=== PATIENT | male | born 1935 | race Caucasian/White ===

== ENCOUNTER → 2017-01-11 | Outpatient (CLI) | payer MEDICARE ==
[2017-01-11 15:02] LABS: Blood Urea Nitrogen 15 mg/dL (9-20); Non-African American GFR(MDRD) >60 (>60 ml/min/1.73 sqM)
--- NOTE | 2017-01-11 16:14 | CT ---
EXAMINATION TYPE: CT soft tissue neck w con DATE OF EXAM: 01/11/2017 COMPARISON: NONE HISTORY: 81-year-old male localized soft tissue swelling. TECHNIQUE: Contiguous axial scanning of the neck performed with IV Contrast, patient injected with 10 0 mL of Omnipaque 300. Coronal/sagittal reconstructions performed. CT DLP: 293.5 mGycm Automated exposure control for dose reduction was used. FINDINGS: Large area of encephalomalacia within the right middle cranial fossa suggests area of old infarct. Vi sualized paranasal sinuses and mastoid air cells are clear. The nasopharynx is clear. Suspect some redundancy of the left posterior oropharyngeal mucosa, axial image 55 as no discrete abnormal enhancement is seen in this region. Oropharynx otherwise clear. The epiglottis and prevertebral soft tissues are within normal limits. The glottic and subglottic structures, tracheal column, and visualized upper lungs appear clear. The thyroid gland appears satisfactory. The submandibular and parotid glands are somewhat atrophic. No cervical lymphadenopathy seen. Patient is edentulous. Degenerative changes at the left TMJ. Degenerative changes at the left sternoclavicular joint. Atherosclerotic calcifications at the left g reater than right carotid bifurcations and degenerative disc disease throughout the cervical spine. IMPRESSION: 1. SOME MUCOSAL SPACE NODULARITY ALONG THE UPPER LEFT POSTERIOR OROPHARYNX SUSPECTED TO REPRESENT RED UNDANT MUCOSA THERE IS NO ABNORMAL ENHANCEMENT HERE. DIRECT VISUALIZATION IF INDICATED. NO SUSPICI OUS NECK MASS OR LYMPHADENOPATHY OTHERWISE SEEN. 2. 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
== END | disposition home or self-care (01) ==
LOC: RADCTMAIN 14:20
PROVIDERS: ATTEND Family Medicine
DX: R22.1 Localized swelling, mass and lump, neck (principal)
CPT/HCPCS: 82565; 84520; 70491; 36415; Q9967

== ENCOUNTER 2017-03-09 15:56 | Inpatient (IN) | payer MEDICARE ==
[2017-03-09 17:35] VITALS: BMI 27.8
[2017-03-09 19:02] LABS: Basophils % (A) 0 %; CH 29.4; CHCM 32.9; Eosinophils # (A) 0.4 k/uL (0-0.7); Eosinophils % (A) 5 %; HCT 36.1 % (39.0-53.0); HDW 3.02; HGB 11.3 gm/dL (13.0-17.5); Luc # (Auto) 0.09; Luc % (Auto) 1; Lymphocytes # (A) 0.7 k/uL (1.0-4.8); Lymphocytes % (A) 9 %; MCH 28.2 pg (25.0-35.0); MCHC 31.4 g/dL (31.0-37.0); MCV 89.8 fL (80.0-100.0); Mean Platelet Volume 9.1; Monocytes # (A) 0.5 k/uL (0-1.0); Monocytes % (A) 6 %; Neutrophils % (A) 79 %; RBC 4.02 m/uL (4.30-5.90); WBC 7.6 k/uL (3.8-10.6); WBC (Perox) 8.41
[2017-03-09 19:11] LABS: Anion Gap 10 mmol/L; Blood Urea Nitrogen 19 mg/dL (9-20); Calcium 8.6 mg/dL (8.4-10.2); Carbon Dioxide 26 mmol/L (22-30); Chloride 103 mmol/L (98-107); Glucose 111 mg/dL (74-99); Non-African American GFR(MDRD) >60 (>60 ml/min/1.73 sqM); Potassium 3.8 mmol/L (3.5-5.1); Sodium 139 mmol/L (137-145)
[2017-03-09 19:16] LABS: INR 1.1 (<1.2); Prothrombin Time 11.4 sec (9.0-12.0)
[2017-03-09] MEDS ORDERED: ATORVASTATIN 10 MG TAB PO SCH (21:00)
[2017-03-09] MEDS ORDERED: ZOLPIDEM 10 MG TAB PO SCH (21:00)
[2017-03-09] MEDS ORDERED: METOPROLOL SUCCINATE (ER) 25 MG TAB.ER.24H PO SCH (21:00)
[2017-03-09] MEDS: CYCLOBENZAPRINE 5 MG TAB PO SCH (21:02)
[2017-03-09] MEDS: SODIUM CHLORIDE 0.9% 1,000 ML IV SCH (21:02)
[2017-03-09] MEDS: HEPARIN SODIUM,PORCINE 5,000 UNIT/ML 1 ML VIAL SQ SCH (21:02)
[2017-03-10 00:56] LABS: Appearance,Urine Clear (Clear); Bilirubin,Urine Negative (Negative); Glucose,Urine (UA) Negative (Negative); Ketones,Urine 1+ (Negative); Leukocyte Esterase,Urine Negative (Negative); Nitrite,Urine Negative (Negative); Protein,Urine Negative (Negative); Specific Gravity,Urine 1.007 (1.001-1.035); UA Billing (MACRO vs. MICRO) CHEM; Urobilinogen,Urine <2.0 mg/dL (<2.0)
[2017-03-10] MEDS ORDERED: PANTOPRAZOLE 40 MG TABLET PO SCH (07:30)
[2017-03-10] MEDS: HEPARIN SODIUM,PORCINE 5,000 UNIT/ML 1 ML VIAL SQ SCH (07:47)
[2017-03-10] MEDS: CYCLOBENZAPRINE 5 MG TAB PO SCH (07:47)
[2017-03-10] MEDS ORDERED: LORATADINE 10 MG TAB PO SCH (09:00)
[2017-03-10] MEDS ORDERED: MELOXICAM 7.5 MG TAB PO SCH (09:00)
[2017-03-10] MEDS ORDERED: amLODIPine 5 MG TAB PO SCH (09:00)
[2017-03-10] MEDS ORDERED: LISINOPRIL 10 MG TAB PO SCH (09:00)
[2017-03-10] MEDS ORDERED: ASPIRIN 325 MG TAB PO SCH (09:00)
[2017-03-10] MEDS ORDERED: traMADol 50 MG TAB PO SCH (09:00)
[2017-03-10] MEDS ORDERED: FUROSEMIDE 20 MG TAB PO SCH (09:00)
[2017-03-10] MEDS ORDERED: TAMSULOSIN 0.4 MG CAP.ER.24H PO SCH (09:00)
[2017-03-10] MEDS ORDERED: FLUDROCORTISONE 0.1 MG TAB PO SCH (09:00)
[2017-03-10] MEDS ORDERED: MAGNESIUM OXIDE 400 MG TAB PO SCH (09:00)
[2017-03-10] MEDS ORDERED: FINASTERIDE 5 MG TAB PO SCH (09:00)
[2017-03-10] MEDS ORDERED: MULTIVITAMINS, THERA 1 EACH TAB PO SCH (12:00)
--- NOTE | 2017-03-10 13:51 | P.CNOR ---
History of Present Illness - HPI Consult date: 03/10/17 History of present illness: This is an 81 year old male who is admitted as an inpatient after a fall. Patient states he fell 6 days ago in an assisted living center. Patient states he did not have significant pain in the arm even with passive range of motion. 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 Patient states over the next few days he noticed increased pain and bruising of the left arm. Patient's primary care physician took x-rays of the left arm and found a fracture of the left humerus. Patient denies any decreased sensation or tingling in the left arm. Patient states as long as the arm is still, his pain is under control. Patient denies any neck pain, right upper extremity pain, bilateral lower extremity pain or back pain. Review of Systems See HPI. Past Medical History Past Medical History: Atrial Flutter, Heart Failure, CVA/TIA, Hyperlipidemia, Hypertension, Prostate Disorder Additional Past Medical History / Comment(s): neurocardiogenic syncope, psoriasis, arthritis, insomnia, holcom disease. History of Any Multi-Drug Resistant Organisms: None Reported Past Surgical History: Appendectomy, Hernia Repair, Tonsillectomy Additional Past Surgical History / Comment(s): multiple hernia repairs with sling, two broken hips surgically corrected, Additional Past Anesthesia/Blood Transfusion Reaction / Comm: Never had transfusion. Smoking Status: Former smoker Past Alcohol Use History: None Reported Past Drug Use History: None Reported - Past Family History Mother History Unknown: Yes Father History Unknown: Yes Medications and Allergies Home Medications Medication Instructions Recorded Confirmed Type Aspirin 325 mg PO DAILY 03/09/17 03/09/17 History Cyclobenzaprine [Flexeril] 5 mg PO BID 03/09/17 03/09/17 History Enalapril Maleate [Vasotec] 5 mg PO DAILY 03/09/17 03/09/17 History Finasteride [Proscar] 5 mg PO DAILY 03/09/17 03/09/17 History Fludrocortisone [Florinef] 0.1 mg PO DAILY 03/09/17 03/09/17 History Furosemide [Lasix] 20 mg PO DAILY 03/09/17 03/09/17 History Loratadine 10 mg PO DAILY 03/09/17 03/09/17 History Magnesium Gluconate [Magonate] 500 mg PO DAILY 03/09/17 03/09/17 History Meloxicam 15 mg PO DAILY 03/09/17 03/09/17 History Metoprolol Succinate [Toprol XL] 25 mg PO HS 03/09/17 03/09/17 History Multivitamin [Men's Multi-Vitamin] 1 tab PO DAILY 03/09/17 03/09/17 History Omeprazole 20 mg PO DAILY 03/09/17 03/09/17 History Simvastatin [Zocor] 20 mg PO HS 03/09/17 03/09/17 History Tamsulosin [Flomax] 0.4 mg PO DAILY 03/09/17 03/09/17 History Zolpidem Tartrate 10 mg PO HS 03/09/17 03/09/17 History amLODIPine BESYLATE [Norvasc] 5 mg PO DAILY 03/09/17 03/09/17 History traMADol HCL [Ultram] 50 mg PO DAILY 03/09/17 03/09/17 History Allergies Allergy/AdvReac Type Severity Reaction Status Date / Time No Known Allergies Allergy Verified 03/09/17 18:22 Physical Examination On exam there is diffuse ecchymosis to the left upper extremity along with swelling to the upper arm. Patient is not able to perform active range of motion due to hemiplegia. There is significant pain with passive range of motion at the elbow and shoulder. Passive range of motion is limited due to pain and swelling. Patient is unable to extend the fingers of the left hand due to hemiplegia but sensation is intact. Radial pulse is 2+. Neurovascular status to the right upper extremity is intact. Results X-rays are reviewed showing proximal humerus fracture of the left upper extremity. - Labs Labs: Abnormal Lab Results - Last 24 Hours (Table) 03/09/17 03/09/17 03/10/17 Range/Units 18:57 18:57 00:23 RBC 4.02 L (4.30-5.90) m/uL Hgb 11.3 L (13.0-17.5) gm/dL Hct 36.1 L (39.0-53.0) % Lymphocytes # 0.7 L (1.0-4.8) k/uL Glucose 111 H (74-99) mg/dL Urine Ketones 1+ H (Negative) Microbiology - Last 24 Hours (Table) 08/23/17 00:23 Urine Culture - Preliminary Urine,Voided H & H 03/09/17 Range/Units 18:57 Hgb 11.3 L (13.0-17.5) gm/dL Hct 36.1 L (39.0-53.0) % Coagulation 03/09/17 Range/Units 18:57 INR 1.1 (<1.2) Result Diagrams: 03/09/17 18:57 03/09/17 18:57 Assessment and Plan (1) Fracture of proximal end of left humerus Status: Acute (2) Fall Status: Acute Plan: #1. Sling to left upper extremity when out of bed. #2. Continue pain control #3. No surgical intervention planned at this time. Recommend follow up with Dr. Bean in the office in one week.
[2017-03-10 14:45] VITALS: BP 147/67; PULSE 78; RESP 14; TEMP 96.7
[2017-03-10] MEDS ORDERED: METHYL SALICYLATE/MENTHOL CREAM 5 OZ TOPICAL PRN (15:45)
[2017-03-10] MEDS: SODIUM CHLORIDE 0.9% 1,000 ML IV SCH (16:39)
--- NOTE | 2017-03-11 09:55 | HP ---
CHIEF COMPLAINT: An 81-year-old male admitted with fall with acute humeral fracture, fell six days ago to [facility] Home. No treatment up until now has been done. Just found to have acute severe pain in his left shoulder and unable to move his arm. History of stroke with paralysis in his arm. Humeral fracture at which time he was admitted to the hospital for surgical intervention. Await surgical intervention at this time. Review of systems and past medical history see HPI. Past medical history: Atrial flutter, heart failure with CVA, TIA, dyslipidemia , hypertension, prostate disorder, psoriasis, arthritis, insomnia, neurocardiogenic syncope. SURGICAL HISTORY: Appendectomy, hernia repair, tonsillectomy, multiple hernia repairs with sling, hip surgically corrected. SOCIAL HISTORY: Former smoker. No alcohol, no illicit drugs. Medications at home included aspirin, Flexeril, ( ) Flonase, Lasix, ( ), meloxicam, Toprol XL, multivitamin, omeprazole, Zocor, Flomax, Zolpidem, Norvasc , tramadol. ALLERGIES: Negative. PHYSICAL EXAM: Vitals are stable. Afebrile. CARDIOVASCULAR: S1, S2. LUNGS: Clear. MUSCULOSKELETAL: Left-sided severe swelling with purple bruising excoriations over the left medial elbow and shoulder. Passive range of motion limited due to pain and swelling. Has hemiplegia. Radial pulses are intact. Neurovascular ( ) bilaterally. Hemoglobin 11.3, iron 1.1, white count 7.6. ASSESSMENT: 1. Acute fracture left humerus. 2. Fall. 3. Facial contusions. 4. Multiple contusions. 5. Arthritis. 6. Tendonitis. Continue with current treatment. Home medications will be continued. Follow up as outpatient when cleared by Orthopedic Surgeon. [place]
== END 2017-03-10 18:38 | DRG 563 ==
LOC: 3SUR 16:21
PROVIDERS: ADMIT Family Medicine; ATTEND Family Medicine
DX: S42.202A Unspecified fracture of upper end of left humerus, initial encounter for closed fracture (principal); I11.0 Hypertensive heart disease with heart failure; I48.92 Unspecified atrial flutter; I50.9 Heart failure, unspecified; I69.934 Monoplegia of upper limb following unspecified cerebrovascular disease affecting left non-dominant side; R55 Syncope and collapse; E78.5 Hyperlipidemia, unspecified; M19.91 Primary osteoarthritis, unspecified site; S00.83XA Contusion of other part of head, initial encounter; L40.9 Psoriasis, unspecified; M77.9 Enthesopathy, unspecified; N42.9 Disorder of prostate, unspecified; Z79.82 Long term (current) use of aspirin; Z79.1 Long term (current) use of non-steroidal anti-inflammatories (NSAID); Z79.899 Other long term (current) drug therapy; Z87.891 Personal history of nicotine dependence; W19.XXXA Unspecified fall, initial encounter; G47.00 Insomnia, unspecified
CPT/HCPCS: 80048; 81003; 85025; 85610; 87086; 93005

== ENCOUNTER → 2017-03-09 | Outpatient (CLI) | payer MEDICARE ==
[2017-03-09 14:38] LABS: Basophils % (A) 0 %; CH 28.2; CHCM 32.6; Eosinophils # (A) 0.4 k/uL (0-0.7); Eosinophils % (A) 6 %; HCT 35.4 % (39.0-53.0); HDW 3.06; HGB 11.6 gm/dL (13.0-17.5); Luc % (Auto) 1; Lymphocytes # (A) 0.6 k/uL (1.0-4.8); Lymphocytes % (A) 9 %; MCH 28.7 pg (25.0-35.0); MCHC 32.8 g/dL (31.0-37.0); MCV 87.2 fL (80.0-100.0); Mean Platelet Volume 8.2; Monocytes # (A) 0.5 k/uL (0-1.0); Monocytes % (A) 7 %; Neutrophils # (A) 5.4 k/uL (1.3-7.7); Neutrophils % (A) 77 %; RBC 4.06 m/uL (4.30-5.90); RDW 14.7 % (11.5-15.5); WBC (Perox) 7.63
--- NOTE | 2017-03-09 15:38 | XR ---
EXAMINATION TYPE: XR skull complete DATE OF EXAM: 03/09/2017 COMPARISON: NONE HISTORY: Fall, pain TECHNIQUE: 4 view skull FINDINGS: There are couple of subtle lucencies within the calvarium which are nonspecific. An acute displaced fracture is not identified. Superficial foreign body may be present along the left parietal skull. Sella is unremarkable. IMPRESSION: 1. Couple of lytic type lucencies are within the left parietal skull. Consider multiple myeloma dionne g other etiologies. 2. Radiopaque foreign body left parietal skull and lateral right orbit 3. No acute osseous abnormality.
--- NOTE | 2017-03-09 15:38 | XR ---
EXAMINATION TYPE: XR shoulder limited LT DATE OF EXAM: 03/09/2017 COMPARISON: NONE HISTORY: Pain TECHNIQUE: Shoulder examined in 3 FINDINGS: The humeral head articulates with the glenoid. The acromio-clavicular junction is normal. There is a fracture of the cervical neck of the humerus. Additional fractures are not identified. A follow up study can be performed 7-10 days from acute trauma for continued pain. IMPRESSION: 1. Fracture at the neck of the left humerus.
--- NOTE | 2017-03-09 15:39 | XR ---
EXAMINATION TYPE: XR humerus LT DATE OF EXAM: 03/09/2017 COMPARISON: NONE HISTORY: Fall, pain TECHNIQUE: 2 view left humerus FINDINGS: There is a fracture at the humeral neck of the left humerus. Distal humerus appears intact as visualized. Images are supplemented with elbow images. IMPRESSION: 1. Fracture at the left humeral neck.
--- NOTE | 2017-03-09 15:40 | XR ---
Left elbow INDICATION: Pain FINDINGS: 2 views left elbow are obtained. Soft tissue prominence may be present dorsally. Radius aligns normal ly humerus. Anterior fat pad is normal. No elevation posterior fat pad is evident. IMPRESSIONS: 1. Normal 2 view left elbow
--- NOTE | 2017-03-09 15:41 | XR ---
EXAMINATION TYPE: XR knee complete bilateral DATE OF EXAM: 03/09/2017 COMPARISON: NONE HISTORY: Fall, pain TECHNIQUE: 3 views bilateral knees FINDINGS: Left knee: There is narrowing of medial compartment joint space. Medial tibial plateau spurring and m edial femoral condylar spurring. Mild narrowing lateral compartment. Patellofemoral joint space spurr ing is present. Fusion is evident. Right knee: Posterior patellar spurring is present. No joint effusion is evident. There is mild narro wing of the medial compartment joint space. Lateral compartment joint spaces preserved. IMPRESSION: 1. Degenerative changes bilateral knees, greater on the left. 2. No acute fractures.
== END | disposition home or self-care (01) ==
LOC: LABWHC1 13:52
PROVIDERS: ATTEND Family Medicine
DX: S50.02XA Contusion of left elbow, initial encounter (principal); M17.0 Bilateral primary osteoarthritis of knee; S42.292A Other displaced fracture of upper end of left humerus, initial encounter for closed fracture; S40.012A Contusion of left shoulder, initial encounter; M79.5 Residual foreign body in soft tissue; B89 Unspecified parasitic disease; N39.0 Urinary tract infection, site not specified
CPT/HCPCS: 36415; 70260; 85025

== ENCOUNTER → 2017-08-12 | Outpatient (CLI) | payer MEDICARE ==
--- NOTE | 2017-08-12 17:12 | CT ---
EXAMINATION TYPE: CT chest wo con DATE OF EXAM: 08/12/2017 COMPARISON: 07/11/2017 HISTORY: Patient complains of difficulty breathing. CT DLP: 456 mGycm, Automated exposure control for dose reduction was used. CONTRAST: Performed injected with 0 mL of Omnipaque 350. TECHNIQUE: Axial images were obtained at 5 mm thick sections. Reconstructed images are reviewed on Copytele computer in the coronal plane. FINDINGS: Portion of the thyroid visualized is normal. Moderate bilateral pleural effusions are present. No enlarged mediastinal or hilar adenopathy is evident. There are scattered small shotty lymph nodes present The ascending aorta diameter at the level of the main pulmonary artery is 3.5 cm. The main pulmonary artery diameter at the bifurcation is 3.3 cm. Moderate coronary artery calcification is pre sent. Limited CT sections are obtained through the upper abdomen. Abdomen is essentially unremarkable. COMPARISON: No significant interval change IMPRESSIONS: 1. Moderate bilateral pleural effusions
== END | disposition home or self-care (01) ==
LOC: RADCTMAIN 14:24
PROVIDERS: ATTEND Family Medicine
DX: J90 Pleural effusion, not elsewhere classified (principal)
CPT/HCPCS: 71250

== ENCOUNTER → 2018-04-21 | Outpatient (CLI) | payer MEDICARE ==
--- NOTE | 2018-04-21 15:06 | CT ---
EXAMINATION TYPE: CT soft tissue neck wo con DATE OF EXAM: 04/21/2018 HISTORY: Bilateral neck swelling COMPARISON: Prior soft tissue neck CT 01/11/2017 CT DLP: 356.4 mGycm. Automated Exposure Control for Dose Reduction was Utilized. TECHNIQUE: CT scan of the neck is performed without IV contrast FINDINGS: Lack of contrast could compromise sensitivity. Encephalomalacia due to middle cerebral mary jane ry infarct is noted incidentally on the right. Cerebral vascular calcifications are present. Extraocu lar phenomenon present at the right lateral ventricle. Orbits show symmetric appearance. Skull base i s within normal limits. Airway: No gross abnormality seen. Bilateral pleural effusions are present. Parotid/submandibular glands: No gross abnormality seen. Carotid/Vascular Structures: Exam is limited by lack of contrast, atheromatous change present within the aorta and super aortic branch vessels, carotid bifurcations Osseous Structures: Degenerative disc changes are present in the visualized spine, there is multileve l spondylosis, facet arthropathy likely accounts for the alignment of the cervical vertebral bodies, this multilevel loss of disc height, cervical vertebral bodies show preserved height and stable bone mineralization. Multilevel foraminal encroachment noted. Hypertrophic change present at the sternocla vicular joint on the left greater than right as on prior exam. Marked arthropathy noted in the left s houlder greater than right. Other: No evident adenopathy. Thyroid gland is stable IMPRESSION: No significant abnormality is seen to account for patient's symptoms. Noncontrast exam. There are bilateral pleural effusions. Additional findings above.
== END | disposition home or self-care (01) ==
LOC: RADCTMAIN 12:29
PROVIDERS: ATTEND Family Medicine
DX: J90 Pleural effusion, not elsewhere classified (principal); I70.0 Atherosclerosis of aorta
CPT/HCPCS: 70490; 82565; 84520

== ENCOUNTER 2020-09-05 10:49 | Inpatient (IN) | payer MEDICARE, OTHER ==
[2020-09-05 11:54] LABS: Basophils % (A) 0 %; Eosinophils # (A) 0.2 k/uL (0-0.7); Eosinophils % (A) 2 %; HCT 37.5 % (39.0-53.0); HGB 11.9 gm/dL (13.0-17.5); Lymphocytes # (A) 0.6 k/uL (1.0-4.8); Lymphocytes % (A) 9 %; MCH 27.3 pg (25.0-35.0); MCHC 31.7 g/dL (31.0-37.0); MCV 86.2 fL (80.0-100.0); Mean Platelet Volume 8.2; Monocytes # (A) 0.5 k/uL (0-1.0); Monocytes % (A) 7 %; Neutrophils # (A) 5.6 k/uL (1.3-7.7); Neutrophils % (A) 80 %; Platelet Count 265 k/uL (150-450); RBC 4.35 m/uL (4.30-5.90); RDW 15.9 % (11.5-15.5)
[2020-09-05 12:08] LABS: Albumin 3.2 g/dL (3.5-5.0); Calcium 9.1 mg/dL (8.4-10.2); Potassium 4.3 mmol/L (3.5-5.1); Total Bilirubin 0.7 mg/dL (0.2-1.3); Total Protein 6.5 g/dL (6.3-8.2)
[2020-09-05 12:14] LABS: Prothrombin Time 11.1 sec (9.0-12.0)
[2020-09-05 12:16] LABS: Partial Thromboplastin Time 21.5 sec (22.0-30.0)
--- NOTE | 2020-09-05 12:17 | XR ---
EXAMINATION TYPE: XR chest 2V DATE OF EXAM: 09/05/2020 COMPARISON: 07/11/2017 HISTORY: Shortness of breath TECHNIQUE: Frontal and lateral views of the chest are obtained. FINDINGS: Scattered senescent parenchymal changes noted. Hyperinflation compatible with COPD. No evidence for infiltrate. No evidence for atelectasis. Layering pleural effusions noted. Heart size is stable. Pulmonary venous congestion without overt failure. Mediastinal structures are stable and grossly unremarkable. No evidence for hilar prominence. Degenerative changes dorsal spine. IMPRESSION: 1. Pulmonary venous congestion without overt failure. Small pleural effusions or pleural thickening.
--- NOTE | 2020-09-05 12:42 | ED ---
General Adult HPI - General Chief complaint: Shortness of Breath Stated complaint: SOB Time Seen by Provider: 09/05/20 10:50 Source: EMS, RN notes reviewed, old records reviewed Mode of arrival: EMS - History of Present Illness Initial comments: This is an 85-year-old male who presents emergency Department from a half-way he is unable to give any history. Patient was brought in because he was according to staff having difficulty breathing and his pulse ox was 90%. Patie nt was having significant respiratory distress at the facility. Patient was going to go to [facility] but they declined the patient and the patient was brought to us because he was having bigeminy in route. There is no history of any fevers. No history of any vomiting or diarrhea. No other history is available at this time. - Related Data Home Medications Medication Instructions Recorded Confirmed Aspirin 325 mg PO DAILY 03/09/17 09/05/20 Loratadine 10 mg PO DAILY PRN 03/09/17 09/05/20 Magnesium Gluconate [Magonate] 500 mg PO DAILY 03/09/17 09/05/20 Metoprolol Succinate [Toprol XL] 25 mg PO DAILY 03/09/17 09/05/20 Simvastatin [Zocor] 20 mg PO HS 03/09/17 09/05/20 Tamsulosin [Flomax] 0.4 mg PO DAILY 03/09/17 09/05/20 traMADol HCL [Ultram] 50 mg PO TID PRN 03/09/17 09/05/20 Baclofen [Lioresal] 10 mg PO BID 07/11/17 09/05/20 Cholecalciferol [Vitamin D3 (25 25 mcg PO DAILY 09/05/20 09/05/20 Mcg = 1000 Iu)] Docusate [Colace] 100 mg PO DAILY PRN 09/05/20 09/05/20 Famotidine [Pepcid] 20 mg PO DAILY 09/05/20 09/05/20 Furosemide [Lasix] 60 mg PO BID@0900,1700 09/05/20 09/05/20 Ipratropium-Albuterol Nebulize 3 ml INHALATION RT-Q8H PRN 09/05/20 09/05/20 [Duoneb 0.5 mg-3 mg/3 ml Soln] Levofloxacin [Levaquin] 500 mg PO DAILY 09/05/20 09/05/20 Levothyroxine Sodium [Synthroid] 88 mcg PO DAILY@0600 09/05/20 09/05/20 Menthol [Biofreeze] 1 applic TOPICAL Q12H PRN 09/05/20 09/05/20 Multivitamin with Iron 1 tab PO DAILY 09/05/20 09/05/20 [Multivitamins with Iron] Phenol 1.4% [place] [Sore Throat 1 spray MUCOUS MEM Q2H PRN 09/05/20 09/05/20 [place] (Chloraseptic)] Potassium Chloride [Klor-Con 20] 20 meq PO DAILY 09/05/20 09/05/20 S.boulardii/B.coagulans/Fos 942 mg PO BID 09/05/20 09/05/20 [Diff-Stat 471 mg Capsule] Allergies Allergy/AdvReac Type Severity Reaction Status Date / Time No Known Allergies Allergy Verified 09/05/20 11:18 Review of Systems ROS Statement: Those systems with pertinent positive or pertinent negative responses have been documented in the HPI. ROS Other: All systems not noted in ROS Statement are negative. Past Medical History Past Medical History: Atrial Flutter, Heart Failure, CVA/TIA, Hyperlipidemia, Hypertension, Prostate Disorder Additional Past Medical History / Comment(s): neurocardiogenic syncope, psoriasis, arthritis, insomnia, holcom disease. History of Any Multi-Drug Resistant Organisms: None Reported Past Surgical History: Appendectomy, Hernia Repair, Tonsillectomy Additional Past Surgical History / Comment(s): multiple hernia repairs with sling, two broken hips surgically corrected, Additional Past Anesthesia/Blood Transfusion Reaction / Comment(s): Never had tr ansfusion. Past Psychological History: No Psychological Hx Reported Smoking Status: Former smoker Past Alcohol Use History: None Reported Past Drug Use History: None Reported - Past Family History Mother History Unknown: Yes Father History Unknown: Yes General Exam - General Exam Comments Initial Comments: GENERAL: Patient is well-developed and well-nourished. Patient is nontoxic and well- hydrated and is in mild distress. Patient's pulse ox was 90% on room air 100% on 3 L ENT: Neck is soft and supple. No significant lymphadenopathy is noted. Oropharynx is clear. Moist mucous membranes. Neck has full range of motion without eliciting any pain. EYES: The sclera were anicteric and conjunctiva were pink and moist. Extraocular mo vements were intact and pupils were equal round and reactive to light. Eyelids were unremarkable. PULMONARY: Unlabored respirations. Good breath sounds bilaterally. No audible rales rhonchi or wheezing was noted. CARDIOVASCULAR: There is a regular rate and rhythm without any murmurs gallops or rubs. ABDOMEN: Soft and nontender with normal bowel sounds. SKIN: Skin is clear with no lesions or rashes and otherwise unremarkable. NEUROLOGIC: Patient is alert and oriented 1. Cranial nerves II through XII are grossly intact. Motor and sensory are also intact. Normal speech, volume and content. Symmetrical smile. MUSCULOSKELETAL: Normal extremities with adequate strength and full range of motion. No lower extremity swelling or edema. No calf tenderness. LYMPHATICS: No significant lymphadenopathy is noted PSYCHIATRIC: Unable to assess Course Vital Signs 09/05/20 09/05/20 09/05/20 10:51 11:35 13:19 Temperature 97.7 F Pulse Rate 71 72 Respiratory 18 18 16 Rate Blood Pressure 125/60 110/74 O2 Sat by Pulse 96 99 Oximetry Medical Decision Making - Medical Decision Making EKG shows undetermined rhythm at 71 bpm QRS 152 QT interval 474 patient has multiple PVCs. Possibly a ventricular rhythm Chest x-ray shows no acute normalities. Patient remained at 95% on 2 L of oxygen. I spoke with some physicians agreed to admit the patient admitted the patient wrote admitting orders. - Lab Data Result diagrams: 09/05/20 11:43 09/05/20 11:43 Lab Results 09/05/20 09/05/20 09/05/20 Range/Units 11:43 11:43 11:43 WBC 7.0 (3.8-10.6) k/uL RBC 4.35 (4.30-5.90) m/uL Hgb 11.9 L (13.0-17.5) gm/dL Hct 37.5 L (39.0-53.0) % MCV 86.2 (80.0-100.0) fL MCH 27.3 (25.0-35.0) pg MCHC 31.7 (31.0-37.0) g/dL RDW 15.9 H (11.5-15.5) % Plt Count 265 (150-450) k/uL MPV 8.2 Neutrophils % 80 % Lymphocytes % 9 % Monocytes % 7 % Eosinophils % 2 % Basophils % 0 % Neutrophils # 5.6 (1.3-7.7) k/uL Lymphocytes # 0.6 L (1.0-4.8) k/uL Monocytes # 0.5 (0-1.0) k/uL Eosinophils # 0.2 (0-0.7) k/uL Basophils # 0.0 (0-0.2) k/uL PT 11.1 (9.0-12.0) sec INR 1.0 (<1.2) APTT 21.5 L (22.0-30.0) sec Sodium 143 (137-145) mmol/L Potassium 4.3 (3.5-5.1) mmol/L Chloride 102 (98-107) mmol/L Carbon Dioxide 30 (22-30) mmol/L Anion Gap 11 mmol/L BUN 35 H (9-20) mg/dL Creatinine 1.33 H (0.66-1.25) mg/dL Est GFR (CKD-EPI)AfAm 56 (>60 ml/min/1.73 sqM) Est GFR (CKD-EPI)NonAf 49 (>60 ml/min/1.73 sqM) Glucose 126 H (74-99) mg/dL Lactic Ac Sepsis Rflx Plasma Lactic Acid Jae (0.7-2.0) mmol/L Calcium 9.1 (8.4-10.2) mg/dL Total Bilirubin 0.7 (0.2-1.3) mg/dL AST 18 (17-59) U/L ALT 12 (4-49) U/L Alkaline Phosphatase 95 (38-126) U/L Troponin I (0.000-0.034) ng/mL Total Protein 6.5 (6.3-8.2) g/dL Albumin 3.2 L (3.5-5.0) g/dL Coronavirus (PCR) (Not Detectd) 09/05/20 09/05/20 09/05/20 Range/Units 11:43 11:43 11:43 WBC (3.8-10.6) k/uL RBC (4.30-5.90) m/uL Hgb (13.0-17.5) gm/dL Hct (39.0-53.0) % MCV (80.0-100.0) fL MCH (25.0-35.0) pg MCHC (31.0-37.0) g/dL RDW (11.5-15.5) % Plt Count (150-450) k/uL MPV Neutrophils % % Lymphocytes % % Monocytes % % Eosinophils % % Basophils % % Neutrophils # (1.3-7.7) k/uL Lymphocytes # (1.0-4.8) k/uL Monocytes # (0-1.0) k/uL Eosinophils # (0-0.7) k/uL Basophils # (0-0.2) k/uL PT (9.0-12.0) sec INR (<1.2) APTT (22.0-30.0) sec Sodium (137-145) mmol/L Potassium (3.5-5.1) mmol/L Chloride (98-107) mmol/L Carbon Dioxide (22-30) mmol/L Anion Gap mmol/L BUN (9-20) mg/dL Creatinine (0.66-1.25) mg/dL Est GFR (CKD-EPI)AfAm (>60 ml/min/1.73 sqM) Est GFR (CKD-EPI)NonAf (>60 ml/min/1.73 sqM) Glucose (74-99) mg/dL Lactic Ac Sepsis Rflx Plasma Lactic Acid Jae 2.6 H* (0.7-2.0) mmol/L Calcium (8.4-10.2) mg/dL Total Bilirubin (0.2-1.3) mg/dL AST (17-59) U/L ALT (4-49) U/L Alkaline Phosphatase (38-126) U/L Troponin I 0.118 H* (0.000-0.034) ng/mL Total Protein (6.3-8.2) g/dL Albumin (3.5-5.0) g/dL Coronavirus (PCR) Not Detected (Not Detectd) 09/05/20 Range/Units 12:17 WBC (3.8-10.6) k/uL RBC (4.30-5.90) m/uL Hgb (13.0-17.5) gm/dL Hct (39.0-53.0) % MCV (80.0-100.0) fL MCH (25.0-35.0) pg MCHC (31.0-37.0) g/dL RDW (11.5-15.5) % Plt Count (150-450) k/uL MPV Neutrophils % % Lymphocytes % % Monocytes % % Eosinophils % % Basophils % % Neutrophils # (1.3-7.7) k/uL Lymphocytes # (1.0-4.8) k/uL Monocytes # (0-1.0) k/uL Eosinophils # (0-0.7) k/uL Basophils # (0-0.2) k/uL PT (9.0-12.0) sec INR (<1.2) APTT (22.0-30.0) sec Sodium (137-145) mmol/L Potassium (3.5-5.1) mmol/L Chloride (98-107) mmol/L Carbon Dioxide (22-30) mmol/L Anion Gap mmol/L BUN (9-20) mg/dL Creatinine (0.66-1.25) mg/dL Est GFR (CKD-EPI)AfAm (>60 ml/min/1.73 sqM) Est GFR (CKD-EPI)NonAf (>60 ml/min/1.73 sqM) Glucose (74-99) mg/dL Lactic Ac Sepsis Rflx Y Plasma Lactic Acid Jae (0.7-2.0) mmol/L Calcium (8.4-10.2) mg/dL Total Bilirubin (0.2-1.3) mg/dL AST (17-59) U/L ALT (4-49) U/L Alkaline Phosphatase (38-126) U/L Troponin I (0.000-0.034) ng/mL Total Protein (6.3-8.2) g/dL Albumin (3.5-5.0) g/dL Coronavirus (PCR) (Not Detectd) Disposition Clinical Impression: Dyspnea Disposition: ADMITTED IP TO THIS HOSP Referrals: Jarek Rodriguez MD [Primary Care Provider] - 1-2 days Time of Disposition: 14:20
[2020-09-05] MEDS ORDERED: SODIUM CHLORIDE 0.9% 1,000 ML IV ONE (14:44)
--- NOTE | 2020-09-05 14:44 | CT ---
EXAMINATION TYPE: CT brain wo con DATE OF EXAM: 09/05/2020 COMPARISON: 05/03/2013 HISTORY: Altered mental status CT DLP: 1173.[address] of the brain was performed. The ventricles, basal cisterns and sulci overlying the cerebral convexities demonstrate moderate enla rgement. Large area of remote insult involving the right MCA territory. There is no evidence for intracranial hemorrhage or sulcal effacement. There is decreased attenuation about the periventricular white matter and deep white matter of both c erebral hemispheres, compatible with chronic small vessel ischemia. Differential diagnosis does inclu de demyelination. No mass effects are seen.No midline shift. Osseous calvarium is intact. If symptoms persist consider MRI. IMPRESSION: 1. Age related atrophic and chronic small vessel ischemic change without acute intracranial process s een at this time.
[2020-09-05] MEDS ORDERED: MELATONIN 3 MG TABLET PO PRN (15:48)
[2020-09-05] MEDS ORDERED: ALPRAZolam 0.25 MG TAB PO PRN (15:48)
[2020-09-05] MEDS ORDERED: ACETAMINOPHEN TAB 325 MG TAB PO PRN (15:48)
[2020-09-05] MEDS ORDERED: NALOXONE 0.4 MG/ML 1 ML VIAL IV PRN (15:48)
[2020-09-05] MEDS ORDERED: HYDROcodone/APAP 5-325MG 1 EACH TAB PO PRN (15:48)
[2020-09-05] MEDS ORDERED: SODIUM CHLORIDE 0.9% 1,000 ML IV SCH (16:00)
[2020-09-05] MEDS ORDERED: ASPIRIN 325 MG TAB PO STA (16:17)
[2020-09-05 16:35] LABS: Appearance,Urine Cloudy (Clear); Bacteria,Urine Many /hpf; Bilirubin,Urine Negative (Negative); Blood,Urine Large (Negative); Budding Yeast,Urine Few /hpf; Color,Urine Yellow; Glucose,Urine (UA) Negative (Negative); Hyaline Casts,Urine 23 /lpf (0-2); Ketones,Urine Negative (Negative); Leukocyte Esterase,Urine Large (Negative); Mucus,Urine Rare /hpf; Nitrite,Urine Negative (Negative); Protein,Urine Trace (Negative); RBC,Urine 161 /hpf (0-5); Specific Gravity,Urine 1.017 (1.001-1.035); Squamous Epithelial Cell,Urine <1 /hpf (0-4); Urobilinogen,Urine <2.0 mg/dL (<2.0); WBC,Urine 129 /hpf (0-5)
[2020-09-05] MEDS ORDERED: traMADol 50 MG TAB PO PRN (16:40)
[2020-09-05] MEDS ORDERED: METHYL SALICYLATE/MENTHOL CREAM 5 OZ TOPICAL PRN (16:40)
[2020-09-05] MEDS ORDERED: Phenol 1.4% Sore Throat Spray Bottle MUCOUS MEM PRN (16:40)
--- NOTE | 2020-09-05 17:51 | P.HPIM ---
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 Patient presented to the emergency department via EMS for reports of being found to be hypoxic and not quite like himself by longterm staff. Upon arrival to hospital, pt had full work up completed with an EKG revealing atrial flutter with PVCs at a controlled ventricular rate of 71 bpm. Chest x-ray revealing pulmonary venous congestion without overt failure and hyperinflation compatible with COPD. CT head revealing age-related atrophic and chronic small vessel ischemic changes without acute intercranial process. Lab findings revealed patient to have an elevated lactate of 2.6, elevated troponin of 0.118, proBNP of 5560, elevated renal function with BUN 35, creatinine 1.33, and GFR 49, and normocytic normochromic anemia with hemoglobin of 11.9, hematocrit 37.5, MCV 86.2, MCH 27.3, MCHC 31.7, and RDW of 15.9. Patient admitted under our services for acute exacerbation of chronic diastolic heart failure and elevated troponin. Patient limited verbally and only able to answer yes and no questions. He denied having any pain or discomfort, denied headache or lightheadedness, chest pain or palpitations, feeling short of breath, any abdominal pain, nausea, or vomiting, denied having any urinary frequency, urgency, or dysuria, denied having any new or uncontrolled pain/tingling/weakness/numbness of extremities. Review of systems: Pertinent positives and negatives as discussed in HPI, a complete review of systems was performed and all other systems are negative. Physical exam: General: non toxic, no acute distress, very frail and emaciated appearance Derm: warm, dry Head: atraumatic, normocephalic, symmetric Eyes: Unequal pupils with Right pupil 5 mm left pupil 2 mm. Mouth: Missing teeth Cardiovascular: Irregularly irregular. Positive posterior tibial pulses bilaterally, Lungs: Barrel chest, CTA bilateral, no rhonchi, no rales, no wheezing no accessory muscle use Abdominal: Concave abdomen. Nontender to palpation, no guarding, no appreciable organomegaly. Ext: Muscle Spacicity, rigidity. No edema, no contractures. Neuro/psych: limited verbal, only able to answer yes and no questions. Plan of care: Acute exacerbation of chronic diastolic heart failure -Cardiology consult to Dr. Torres. -Echocardiogram -Telemetry monitoring -Initial troponin elevated at 0.118, we will trend troponins every 3 hours 2 -ProBNP 5560 -Daily weights -Close monitoring of I's and O's -Heart Healthy Cardiac diet -Lasix 40 mg IVP every 12 hours -Continuation of Aspirin, atorvastatin, and metoprolol daily. -Lipid profile with a.m. labs. -Continued close monitoring of electrolytes while diuresing. -Continue with supplemental oxygenation as needed to maintain SpO2 equal to or greater than 92%, wean off oxygen when able. Elevated troponin likely secondary to CHF exacerbation and less likely acute coronary event -Cardiology consult to Dr. Torres. -Echocardiogram -Telemetry monitoring -Initial troponin elevated at 0.118, we will trend troponins every 3 hours 2 -Treatment of acute CHF exacerbation, diuresis with Lasix 40 mg IVP every 12 hours. Elevated Lactate likely resulting from hypoperfusion secondary to cardiac etiology -Treating underlying acute exacerbation of CHF, diuresis with Lasix 40 mg IVP every 12 hours. -Recheck lactate in 6 hours. Abdominal urinalysis, suspect asymptomatic bacteriuria -Urinalysis positive for blood, leukocytes, 161 RBCs, 129 WBCs, and bacteria. -Patient denies having urinary complaints including frequency, urgency, or dysuria. -Patient remains afebrile. CBC revealed WBC 7.0. Atrial flutter with frequent PVCs -Patient with history of atrial fibrillation/flutter. -DVT prophylaxis with heparin Hypertension -Monitor vital signs and continue daily medication regimen including metoprolol succinate. Hyperlipidemia -Continue daily medication regimen with simvastatin. -Heart healthy diet. History of CVA with deficits consisting of significant muscle spasticity -Continue daily medication regimen baclofen, tramadol, and biofreeze. -Patient to be provided with assistance as needed. Hypothyroidism -Continuation of daily medication regimen with minimal 88 g each morning. GERD -Continue daily medication regimen with Pepcid. The patient is admitted with an anticipated greater than 2 midnight stay for evaluation of acute exacerbation of chronic diastolic heart failure and elevated troponin Surrogate decision-maker: Patient's son, Vikram Roberts, is advanced directive and he can be reached at . CODE STATUS: DO NOT RESUSCITATE/DO NOT INTUBATE Pt is YES to all medical interventions including vasopressors and cardioversion, but is NO to CPR, intubation, and mechanical ventilation. DVT prophylaxis: Heparin Discussed with: Patient, RN, and patient's son Vikram Anticipated discharge date: Clinical course to determine Anticipated discharge place: [facility] facility A total of 45 minutes was spent on the care of this complex patient more than 50% of the time was spent in counseling and care coordination. Past Medical History Past Medical History: Atrial Flutter, Heart Failure, CVA/TIA, Hyperlipidemia, Hypertension, Prostate Disorder Additional Past Medical History / Comment(s): neurocardiogenic syncope, psoriasis, arthritis, insomnia, holcom disease. History of Any Multi-Drug Resistant Organisms: None Reported Past Surgical History: Appendectomy, Hernia Repair, Tonsillectomy Additional Past Surgical History / Comment(s): multiple hernia repairs with sling, two broken hips surgically corrected, Additional Past Anesthesia/Blood Transfusion Reaction / Comment(s): Never had transfusion. Past Psychological History: No Psychological Hx Reported Smoking Status: Former smoker Past Alcohol Use History: None Reported Past Drug Use History: None Reported - Past Family History Mother History Unknown: Yes Father History Unknown: Yes Medications and Allergies Home Medications Medication Instructions Recorded Confirmed Type Aspirin 325 mg PO DAILY 03/09/17 09/05/20 History Loratadine 10 mg PO DAILY PRN 03/09/17 09/05/20 History Magnesium Gluconate [Magonate] 500 mg PO DAILY 03/09/17 09/05/20 History Metoprolol Succinate [Toprol XL] 25 mg PO DAILY 03/09/17 09/05/20 History Simvastatin [Zocor] 20 mg PO HS 03/09/17 09/05/20 History Tamsulosin [Flomax] 0.4 mg PO DAILY 03/09/17 09/05/20 History traMADol HCL [Ultram] 50 mg PO TID PRN 03/09/17 09/05/20 History Baclofen [Lioresal] 10 mg PO BID 07/11/17 09/05/20 History Cholecalciferol [Vitamin D3 (25 25 mcg PO DAILY 09/05/20 09/05/20 History Mcg = 1000 Iu)] Docusate [Colace] 100 mg PO DAILY PRN 09/05/20 09/05/20 History Famotidine [Pepcid] 20 mg PO DAILY 09/05/20 09/05/20 History Furosemide [Lasix] 60 mg PO BID@0900,1700 09/05/20 09/05/20 History Ipratropium-Albuterol Nebulize 3 ml INHALATION RT-Q8H PRN 09/05/20 09/05/20 History [Duoneb 0.5 mg-3 mg/3 ml Soln] Levofloxacin [Levaquin] 500 mg PO DAILY 09/05/20 09/05/20 History Levothyroxine Sodium [Synthroid] 88 mcg PO DAILY@0600 09/05/20 09/05/20 History Menthol [Biofreeze] 1 applic TOPICAL Q12H PRN 09/05/20 09/05/20 History Multivitamin with Iron 1 tab PO DAILY 09/05/20 09/05/20 History [Multivitamins with Iron] Phenol 1.4% Yermo [Sore Throat 1 spray MUCOUS MEM Q2H PRN 09/05/20 09/05/20 His tory Yermo (Chloraseptic)] Potassium Chloride [Klor-Con 20] 20 meq PO DAILY 09/05/20 09/05/20 History S.boulardii/B.coagulans/Fos 942 mg PO BID 09/05/20 09/05/20 History [Diff-Stat 471 mg Capsule] Allergies Allergy/AdvReac Type Severity Reaction Status Date / Time No Known Allergies Allergy Verified 09/05/20 11:18 Physical Exam Vitals: Vital Signs Temp Pulse Pulse Resp BP BP Pulse Ox 09/05/20 16:10 73 18 09/05/20 15:34 97.7 F 73 18 119/61 99 09/05/20 15:20 97.9 F 72 16 107/67 98 09/05/20 13:19 72 16 110/74 99 09/05/20 11:35 18 09/05/20 10:51 97.7 F 71 18 125/60 96 Intake and Output 09/05/20 09/05/20 09/05/20 06:59 14:59 22:59 Other: Weight 63.957 kg 63.957 kg Results CBC & Chem 7: 09/05/20 11:43 09/05/20 11:43 Labs: Abnormal Lab Results - Last 24 Hours (Table) 09/05/20 09/05/20 09/05/20 Range/Units 11:43 11:43 11:43 Hgb 11.9 L (13.0-17.5) gm/dL Hct 37.5 L (39.0-53.0) % RDW 15.9 H (11.5-15.5) % Lymphocytes # 0.6 L (1.0-4.8) k/uL APTT 21.5 L (22.0-30.0) sec BUN 35 H (9-20) mg/dL Creatinine 1.33 H (0.66-1.25) mg/dL Glucose 126 H (74-99) mg/dL Plasma Lactic Acid Jae (0.7-2.0) mmol/L Troponin I (0.000-0.034) ng/mL Albumin 3.2 L (3.5-5.0) g/dL 09/05/20 09/05/20 09/05/20 Range/Units 11:43 11:43 15:10 Hgb (13.0-17.5) gm/dL Hct (39.0-53.0) % RDW (11.5-15.5) % Lymphocytes # (1.0-4.8) k/uL APTT (22.0-30.0) sec BUN (9-20) mg/dL Creatinine (0.66-1.25) mg/dL Glucose (74-99) mg/dL Plasma Lactic Acid Jae 2.6 H* 2.7 H* (0.7-2.0) mmol/L Troponin I 0.118 H* (0.000-0.034) ng/mL Albumin (3.5-5.0) g/dL Thrombosis Risk Factor Assmnt - Choose All That Apply Each Risk Factor Represents 2 Points: Patient confined to bed Each Risk Factor Represents 3 Points: Age 75 years or older Thrombosis Risk Factor Assessment Total Risk Factor Score: 5 Thrombosis Risk Factor Assessment Level: High Risk <Negin White - Last Filed: 09/05/20 18:51> Physical Exam Osteopathic Statement: *. No significant issues noted on an osteopathic structural exam other than those noted in the History and Physical/Consult. Vitals: Vital Signs Temp Pulse Pulse Resp BP BP Pulse Ox 09/05/20 17:35 97.7 F 93 19 145/84 92 L 09/05/20 16:25 99 09/05/20 16:10 73 18 09/05/20 15:34 97.7 F 73 18 119/61 99 09/05/20 15:20 97.9 F 72 16 107/67 98 09/05/20 13:19 72 16 110/74 99 09/05/20 11:35 18 09/05/20 10:51 97.7 F 71 18 125/60 96 Intake and Output 09/05/20 09/05/20 09/05/20 06:59 14:59 22:59 Other: Weight 63.957 kg 63.957 kg Results CBC & Chem 7: 09/05/20 11:43 09/05/20 11:43 Labs: Abnormal Lab Results - Last 24 Hours (Table) 09/05/20 09/05/20 09/05/20 Range/Units 11:35 11:43 11:43 Hgb 11.9 L (13.0-17.5) gm/dL Hct 37.5 L (39.0-53.0) % RDW 15.9 H (11.5-15.5) % Lymphocytes # 0.6 L (1.0-4.8) k/uL APTT 21.5 L (22.0-30.0) sec BUN (9-20) mg/dL Creatinine (0.66-1.25) mg/dL Glucose (74-99) mg/dL Plasma Lactic Acid Jae (0.7-2.0) mmol/L Troponin I (0.000-0.034) ng/mL Albumin (3.5-5.0) g/dL Urine Protein Trace H (Negative) Urine Blood Large H (Negative) Ur Leukocyte Esterase Large H (Negative) Urine RBC 161 H (0-5) /hpf Urine WBC 129 H (0-5) /hpf Urine WBC Clumps Few H (None) /hpf Urine Bacteria Many H (None) /hpf Hyaline Casts 23 H (0-2) /lpf Urine Mucus Rare H (None) /hpf Urine Yeast (Budding) Few H (None) /hpf 09/05/20 09/05/20 09/05/20 Range/Units 11:43 11:43 11:43 Hgb (13.0-17.5) gm/dL Hct (39.0-53.0) % RDW (11.5-15.5) % Lymphocytes # (1.0-4.8) k/uL APTT (22.0-30.0) sec BUN 35 H (9-20) mg/dL Creatinine 1.33 H (0.66-1.25) mg/dL Glucose 126 H (74-99) mg/dL Plasma Lactic Acid Jae 2.6 H* (0.7-2.0) mmol/L Troponin I 0.118 H* (0.000-0.034) ng/mL Albumin 3.2 L (3.5-5.0) g/dL Urine Protein (Negative) Urine Blood (Negative) Ur Leukocyte Esterase (Negative) Urine RBC (0-5) /hpf Urine WBC (0-5) /hpf Urine WBC Clumps (None) /hpf Urine Bacteria (None) /hpf Hyaline Casts (0-2) /lpf Urine Mucus (None) /hpf Urine Yeast (Budding) (None) /hpf 09/05/20 09/05/20 Range/Units 15:10 18:25 Hgb (13.0-17.5) gm/dL Hct (39.0-53.0) % RDW (11.5-15.5) % Lymphocytes # (1.0-4.8) k/uL APTT (22.0-30.0) sec BUN (9-20) mg/dL Creatinine (0.66-1.25) mg/dL Glucose (74-99) mg/dL Plasma Lactic Acid Jae 2.7 H* 5.0 H* (0.7-2.0) mmol/L Troponin I (0.000-0.034) ng/mL Albumin (3.5-5.0) g/dL Urine Protein (Negative) Urine Blood (Negative) Ur Leukocyte Esterase (Negative) Urine RBC (0-5) /hpf Urine WBC (0-5) /hpf Urine WBC Clumps (None) /hpf Urine Bacteria (None) /hpf Hyaline Casts (0-2) /lpf Urine Mucus (None) /hpf Urine Yeast (Budding) (None) /hpf Assessment and Plan Assessment: Patient seen and examined independently. Patient was also seen by Rich Woods NP and case was discussed. I am in agreement with subjective, physical exam, assessment and plan as written above and amended below. Patient seen and examined at bedside. He denies any chest pain or shortness of breath. He has no other questions currently. General: non toxic, no distress, appears at stated age, temporal and buccal wasting Derm: Ischemic. Toes bilateral lower extremities, decreased capillary refill, small ulcerated lesion left second toe covered with a sharp warm, dry Head: atraumatic, normocephalic, symmetric Eyes: EOMI, no lid lag, anicteric sclera Mouth: no lip lesion, mucus membranes dry Cardiovascular: S1S2 irreg, no murmur, positive posterior tibial pulse bilateral, Lungs: decreased bs bilateral, no rhonchi, no rales , no accessory muscle use Abdominal: soft, nontender to palpation, no guarding, no appreciable organomegaly Ext: + Gross muscle atrophy, no edema, Neuro: Flexion contracture left hand and bilateral lower extremities, spasticity Psych: Alert, oriented, appropriate affect Stage I coccyx ulcer, present on admission -Frequent repositioning -Barrier cream -Offloading Sevre Protein Calorie malnutrition - encourage oral intake - calorie ount - dietitian recs CKD III - baseline Cr appears to be 1.3 - monitor closely with diuresis - follow Cr Dictation error correction: Abnormla urinalysis, suspect asymptomatic bacteriuria -Urinalysis positive for blood, leukocytes, 161 RBCs, 129 WBCs, and bacteria. -Patient denies having urinary complaints including frequency, urgency, or dysuria. -Patient remains afebrile. CBC revealed WBC 7.0.
[2020-09-05] MEDS: ATORVASTATIN 10 MG TAB PO SCH (22:05)
[2020-09-05] MEDS: HEPARIN SODIUM,PORCINE 5,000 UNIT/ML 1 ML VIAL SQ SCH (22:05)
[2020-09-05] MEDS: BACLOFEN 10 MG TAB PO SCH (22:05)
[2020-09-05] MEDS: FUROSEMIDE 10 MG/ML 4 ML VIAL IV SCH (22:05)
[2020-09-06 05:56] LABS: Basophils % (A) 0 %; Eosinophils # (A) 0.1 k/uL (0-0.7); Eosinophils % (A) 2 %; HCT 42.2 % (39.0-53.0); HGB 13.5 gm/dL (13.0-17.5); Lymphocytes # (A) 0.4 k/uL (1.0-4.8); Lymphocytes % (A) 10 %; MCHC 32.1 g/dL (31.0-37.0); MCV 87.2 fL (80.0-100.0); Mean Platelet Volume 8.6; Monocytes # (A) 0.3 k/uL (0-1.0); Monocytes % (A) 7 %; Neutrophils # (A) 3.5 k/uL (1.3-7.7); Neutrophils % (A) 80 %; Platelet Count 209 k/uL (150-450); RBC 4.83 m/uL (4.30-5.90); WBC 4.3 k/uL (3.8-10.6)
[2020-09-06] MEDS: LEVOTHYROXINE 88 MCG TAB PO SCH (06:04)
[2020-09-06 06:30] LABS: ALT 14 U/L (4-49); AST 47 U/L (17-59); African American GFR (CKD) 65 (>60 ml/min/1.73 sqM); Albumin 3.5 g/dL (3.5-5.0); Albumin/Globulin Ratio 0.9; Alkaline Phosphatase 85 U/L (38-126); Anion Gap 13 mmol/L; Blood Urea Nitrogen 37 mg/dL (9-20); Calcium 9.4 mg/dL (8.4-10.2); Carbon Dioxide 21 mmol/L (22-30); Chloride 107 mmol/L (98-107); Cholesterol 109 mg/dL (<200); Globulin 3.9 g/dL; Glucose 126 mg/dL (74-99); HDL Cholesterol 21 mg/dL (40-60); LDL Cholesterol,Calculated 66 mg/dL (0-99); Magnesium 2.4 mg/dL (1.6-2.3); Non-African American GFR(CKD) 56 (>60 ml/min/1.73 sqM); Sodium 141 mmol/L (137-145); Total Bilirubin 1.2 mg/dL (0.2-1.3); Total Protein 7.4 g/dL (6.3-8.2); Triglycerides 108 mg/dL (<150)
[2020-09-06 07:25] LABS: Band Neutrophils % 11 %; Lymphocytes # (M) 0.56 k/uL (1.0-4.8); Monocytes # (M) 0.43 k/uL (0-1.0); Neutrophils % (M) 67 %; Nucleated Red Blood Cells 0 /100 WBC (0-0); Total Cells Counted 200
[2020-09-06] MEDS ORDERED: ASPIRIN 325 MG TAB PO SCH (09:00)
[2020-09-06] MEDS: FUROSEMIDE 10 MG/ML 4 ML VIAL IV SCH (09:24)
[2020-09-06] MEDS: CHOLECALCIFEROL 25 MCG (1000 IU) TABLET PO SCH (09:24)
[2020-09-06] MEDS: FAMOTIDINE 20 MG TAB PO SCH (09:24)
[2020-09-06] MEDS: MULTIVITAMINS, THERA 1 EACH TAB PO SCH (09:24)
[2020-09-06] MEDS: HEPARIN SODIUM,PORCINE 5,000 UNIT/ML 1 ML VIAL SQ SCH ×2 (09:28→20:30)
[2020-09-06] MEDS: BACLOFEN 10 MG TAB PO SCH ×2 (09:30→20:30)
[2020-09-06] MEDS: METOPROLOL SUCCINATE (ER) 25 MG TAB.ER.24H PO SCH (09:30)
[2020-09-06] MEDS: TAMSULOSIN 0.4 MG CAP.ER.24H PO SCH (09:31)
[2020-09-06 11:21] VITALS: BMI 17.4
--- NOTE | 2020-09-06 11:49 | ECHOF ---
Referral Reason:elevated troponin, chf exacerbation MEASUREMENTS -------- HEIGHT: 180.3 cm WEIGHT: 56.2 kg BP: FINDINGS -------- This was a technically difficult limited study with suboptimal views with Lumason. Unable to visuali ze the heart. Suboptimal test with Lumason. Unable to calculate EF. The RV was not well visualized. The left atrium was not well visualized. The right atrium was not well visualized. The aortic valve was not well visualized. The mitral valve was not well visualized. The tricuspid valve was not well visualized. The pulmonic valve was not well visualized. CONCLUSIONS -------- 1. This was a technically difficult limited study with suboptimal views with Lumason. Unable to visu tyler the heart. 2. Suboptimal test with Lumason. Unable to calculate EF. TRANSITIONAL STUDIES INSTRUCTOR: Mesha Crowley RDCS
--- NOTE | 2020-09-06 13:31 | P.CRDCN ---
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 We have been asked to see in consultation for heart failure. He is seen and examined sitting up in bed in no acute distress. He is a poor historian and does not verbalize any complaints or give any history. Apparently he was sent in from prison due to pulse ox of 90% and shortness of breath. He has been started on IV diuretics, which have caused some hypotension. Unfortunately, the echo was suboptimal, EF could not be calculated and no readable images were obtained. Previously in he had an echo that revealed preserved LV systolic function with EF 50-55%, dilated LA, mild MR and mild AR. DIAGNOSTICS EKG reveals atrial fibrillation with left bundle branch block and right bundle PVC's. He is not on telemetry. Chest xray pulmonary vascular congestion with small pleural effusions. Laboratory reviewed, WBC 4.3, hemoglobin 13.5, platelets 209, sodium 141, potassium on admission 4. 3 repeat today 6, magnesium 2.4, creatinine on admission 1. 3 repeat today 1.1, lactic acid on admission 9.9 repeat 2.0, troponin 0.118, 0.081, 0.087 and proBNP 5560. Current cardiac medications include aspirin 325 mg daily, toprol 25 mg daily, simvastatin 20 mg daily and lasix 60 mg daily. REVIEW OF SYSTEMS At the time of my exam: CONSTITUTIONAL: Denies fever or chills. CARDIOVASCULAR: Denies chest pain, shortness of breath, orthopnea, PND or palpitations. RESPIRATORY: Denies cough. GASTROINTESTINAL: Denies abdominal pain, diarrhea, constipation, nausea or vomiting. MUSCULOSKELETAL: Denies myalgias. NEUROLOGIC: Denies numbness, tingling, headacbe or weakness. ENDOCRINE: Denies fatigue, weight change, polydipsia or polyurina. GENITOURINARY: Denies burning, hematuria or urgency with micturation. HEMATOLOGIC: Denies history of anemia or bleeding. PHYSICAL EXAMINATION Blood pressure 94/54 heart rate 74 afebrile and maintaining oxygen saturation on nasal cannula. CONSTITUTIONAL: No apparent distress. HEENT: Head is normocephalic. Pupils are equal, round. Sclerae anicteric. Mucous membranes of the mouth are moist. No JVD. No carotid bruit. CHEST EXAMINATION: Lungs are clear to auscultation. No chest wall tenderness is noted on palpation or with deep breathing. Diminished bilaterally. HEART EXAMINATION: Irregular rate and rhythm. S1, S2 heard. No murmurs, gallops or rub. ABDOMEN: Soft, nontender. Positive bowel sounds. EXTREMITIES: 2+ peripheral pulses, no lower extremity edema and no calf tenderness. NEUROLOGIC EXAMINATION: Patient is awake and alert. ASSESSMENT Acute on chronic diastolic heart failure Lactic acidosis Acute kidney injury Elevated troponin, not related to primary myocardial injury. Possibly related to hypoxia or renal function. He is unable to verbalize symptoms. Chronic persistent atrial fibrillation not on anti-coagulation due to frequent falls Hypotension History of hypertension Dyslipidemia PLAN Decrease aspirin to 81 mg daily. Increase dose provides no thromboembolic protection from afib. Transition to oral diuretics at 80 mg BID due to hypotension. Continue statin and toprol as previously ordered. Discontinue fluid infusion. Repeat renal function in the morning. We will continue to follow and make recommendations accordingly. Thank you kindly for this consultation. Nurse Practitioner note has been reviewed, I agree with a documented findings and plan of care. Patient was seen and examined. Past Medical History Past Medical History: Atrial Flutter, Heart Failure, CVA/TIA, Hyperlipidemia, Hypertension, Prostate Disorder Additional Past Medical History / Comment(s): neurocardiogenic syncope, psoriasis, arthritis, insomnia, holcom disease. History of Any Multi-Drug Resistant Organisms: None Reported Past Surgical History: Appendectomy, Hernia Repair, Tonsillectomy Additional Past Surgical History / Comment(s): multiple hernia repairs with sling, two broken hips surgically corrected, Additional Past Anesthesia/Blood Transfusion Reaction / Comment(s): Never had transfusion. Past Psychological History: No Psychological Hx Reported Smoking Status: Former smoker Past Alcohol Use History: None Reported Past Drug Use History: None Reported - Past Family History Mother History Unknown: Yes Father History Unknown: Yes Medications and Allergies Home Medications Medication Instructions Recorded Confirmed Type Aspirin 325 mg PO DAILY 03/09/17 09/05/20 History Loratadine 10 mg PO DAILY PRN 03/09/17 09/05/20 History Magnesium Gluconate [Magonate] 500 mg PO DAILY 03/09/17 09/05/20 History Metoprolol Succinate [Toprol XL] 25 mg PO DAILY 03/09/17 09/05/20 History Simvastatin [Zocor] 20 mg PO HS 03/09/17 09/05/20 History Tamsulosin [Flomax] 0.4 mg PO DAILY 03/09/17 09/05/20 History traMADol HCL [Ultram] 50 mg PO TID PRN 03/09/17 09/05/20 History Baclofen [Lioresal] 10 mg PO BID 07/11/17 09/05/20 History Cholecalciferol [Vitamin D3 (25 25 mcg PO DAILY 09/05/20 09/05/20 History Mcg = 1000 Iu)] Docusate [Colace] 100 mg PO DAILY PRN 09/05/20 09/05/20 History Famotidine [Pepcid] 20 mg PO DAILY 09/05/20 09/05/20 History Furosemide [Lasix] 60 mg PO BID@0900,1700 09/05/20 09/05/20 History Ipratropium-Albuterol Nebulize 3 ml INHALATION RT-Q8H PRN 09/05/20 09/05/20 History [Duoneb 0.5 mg-3 mg/3 ml Soln] Levofloxacin [Levaquin] 500 mg PO DAILY 09/05/20 09/05/20 History Levothyroxine Sodium [Synthroid] 88 mcg PO DAILY@0600 09/05/20 09/05/20 History Menthol [Biofreeze] 1 applic TOPICAL Q12H PRN 09/05/20 09/05/20 History Multivitamin with Iron 1 tab PO DAILY 09/05/20 09/05/20 History [Multivitamins with Iron] Phenol 1.4% Mays [Sore Throat 1 spray MUCOUS MEM Q2H PRN 09/05/20 09/05/20 History Mays (Chloraseptic)] Potassium Chloride [Klor-Con 20] 20 meq PO DAILY 09/05/20 09/05/20 History S.boulardii/B.coagulans/Fos 942 mg PO BID 09/05/20 09/05/20 History [Diff-Stat 471 mg Capsule] Allergies Allergy/AdvReac Type Severity Reaction Status Date / Time No Known Allergies Allergy Verified 02/18/21 11:18 Physical Exam Vitals: Vital Signs Temp Pulse Pulse Pulse Resp BP BP 09/06/20 09:25 74 22 94/54 09/06/20 07:14 97.4 F L 91 16 106/81 09/06/20 06:23 98.2 F 70 24 106/61 09/06/20 02:00 97.3 F L 81 20 89/51 09/05/20 22:30 98.1 F 72 20 100/64 09/05/20 17:35 97.7 F 93 19 145/84 09/05/20 16:25 09/05/20 16:10 73 18 09/05/20 15:34 97.7 F 73 18 119/61 09/05/20 15:20 97.9 F 72 16 107/67 09/05/20 13:19 72 16 110/74 Pulse Ox 09/06/20 09:25 98 09/06/20 07:14 92 L 09/06/20 06:23 91 L 09/06/20 02:00 94 L 09/05/20 22:30 92 L 09/05/20 17:35 92 L 09/05/20 16:25 99 09/05/20 16:10 09/05/20 15:34 99 09/05/20 15:20 98 09/05/20 13:19 99 Intake and Output 09/05/20 09/06/20 09/06/20 22:59 06:59 14:59 Intake Total 300 300 Balance 300 300 Intake: Oral 300 300 Other: Voiding Method Diaper Diaper # Voids 2 3 Weight 63.957 kg 56.5 kg 56.5 kg Results 09/06/20 05:29 09/06/20 05:29 Cardiac Enzymes 09/05/20 09/05/20 09/06/20 Range/Units 18:25 21:18 05:29 AST 47 (17-59) U/L Troponin I 0.081 H* 0.087 H* (0.000-0.034) ng/mL Lipids 09/06/20 Range/Units 05:29 Triglycerides 108 (<150) mg/dL Cholesterol 109 (<200) mg/dL HDL Cholesterol 21 L (40-60) mg/dL CBC 09/06/20 Range/Units 05:29 WBC 4.3 (3.8-10.6) k/uL RBC 4.83 (4.30-5.90) m/uL Hgb 13.5 (13.0-17.5) gm/dL Hct 42.2 (39.0-53.0) % Plt Count 209 (150-450) k/uL Comprehensive Metabolic Panel 09/06/20 Range/Units 05:29 Sodium 141 (137-145) mmol/L Potassium 6.0 H (3.5-5.1) mmol/L Chloride 107 (98-107) mmol/L Carbon Dioxide 21 L (22-30) mmol/L BUN 37 H (9-20) mg/dL Creatinine 1.18 (0.66-1.25) mg/dL Glucose 126 H (74-99) mg/dL Calcium 9.4 (8.4-10.2) mg/dL AST 47 (17-59) U/L ALT 14 (4-49) U/L Alkaline Phosphatase 85 (38-126) U/L Total Protein 7.4 (6.3-8.2) g/dL Albumin 3.5 (3.5-5.0) g/dL Current Medications Generic Name Dose Route Start Last Admin Trade Name Freq PRN Reason Stop Dose Admin Acetaminophen 650 mg 09/05/20 15:48 Acetaminophen Tab 325 Mg Tab PO Q6HR PRN Mild Pain or Fever > 100.5 Hydrocodone Bitart/Acetaminophen 1 each 09/05/20 15:48 Hydrocodone/Apap 5-325mg 1 Each Tab PO Q4HR PRN Moderate Pain Albuterol/Ipratropium 3 ml 09/05/20 16:40 Ipratropium-Albuterol 3 Ml Neb INHALATION RT-Q8H PRN Shortness Of Breath Or Wheezing Alprazolam 0.25 mg 09/05/20 15:48 Alprazolam 0.25 Mg Tab PO Q6HR PRN Anxiety Aspirin 81 mg 09/07/20 09:00 Aspirin 81 Mg PO DAILY MARIANA Atorvastatin Calcium 10 mg 09/05/20 21:00 09/05/20 22:05 Atorvastatin 10 Mg Tab PO 10 mg HS MARIANA Administration Baclofen 10 mg 09/05/20 21:00 09/06/20 09:30 Baclofen 10 Mg Tab PO Not Given BID MARIANA Cholecalciferol 25 mcg 09/06/20 09:00 09/06/20 09:24 Cholecalciferol 25 Mcg (1000 Iu) Tablet PO Not Given DAILY [facility] Famotidine 20 mg 09/06/20 09:00 09/06/20 09:24 Famotidine 20 Mg Tab PO Not Given DAILY [facility] Furosemide 80 mg 09/06/20 16:00 Furosemide 80 Mg Tab PO BID@0900,1600 [facility] Heparin Sodium (Porcine) 5,000 unit 09/05/20 21:00 09/06/20 09:28 Heparin Sodium,Porcine 5,000 Unit/Ml 1 Ml Vial SQ 5,000 unit Q12HR MARIANA Administration Levothyroxine Sodium 88 mcg 09/06/20 06:00 09/06/20 06:04 Levothyroxine 88 Mcg Tab PO 88 mcg DAILY@0600 [facility] Administration Melatonin 3 mg 09/05/20 15:48 Melatonin 3 Mg Tablet PO HS PRN Insomnia Methyl Salicylate 1 applic 09/05/20 16:40 Methyl Salicylate/Menthol Cream 5 Oz TOPICAL Q12H PRN NECK/SHOULDER PAIN Metoprolol Succinate 25 mg 09/06/20 09:00 09/06/20 09:30 Metoprolol Succinate (Er) 25 Mg Tab.Er.24h PO Not Given DAILY [facility] Multivitamins 1 each 09/06/20 09:00 09/06/20 09:24 Multivitamins, Thera 1 Each Tab PO Not Given DAILY [facility] Naloxone HCl 0.2 mg 09/05/20 15:48 Naloxone 0.4 Mg/Ml 1 Ml Vial IV Q2M PRN Opioid Reversal Phenol/Menthol 1 applic 09/05/20 16:40 Phenol 1.4% Sore Throat Mays Bottle MUCOUS MEM Q2H PRN MOUTH/THROAT/DENTAL AGENTS Tamsulosin HCl 0.4 mg 09/06/20 09:00 09/06/20 09:31 Tamsulosin 0.4 Mg Cap.Er.24h PO Not Given DAILY [facility] Tramadol HCl 50 mg 09/05/20 16:40 Tramadol 50 Mg Tab PO TID PRN Pain Intake and Output 09/05/20 09/06/20 09/06/20 22:59 06:59 14:59 Intake Total 300 300 Balance 300 300 Intake: Oral 300 300 Other: Voiding Method Diaper Diaper # Voids 2 3 Weight 63.957 kg 56.5 kg 56.5 kg Patient Weight 09/07/20 06:59 Weight 56.5 kg 09/06/20 05:29 09/06/20 05:29
[2020-09-06] MEDS: FUROSEMIDE 80 MG TAB PO SCH (17:29)
[2020-09-06] MEDS: ATORVASTATIN 10 MG TAB PO SCH (20:30)
[2020-09-06] MEDS ORDERED: SODIUM POLYSTYRENE SULFONATE 15 GM/60 ML BOTTLE PO STA (22:39)
--- NOTE | 2020-09-06 22:46 | P.PN ---
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 Patient presented to the emergency department via EMS for reports of being found to be hypoxic and not quite like himself by jail staff. Upon arrival to hospital, pt had full work up completed with an EKG revealing atrial flutter with PVCs at a controlled ventricular rate of 71 bpm. Chest x-ray revealing pulmonary venous congestion without overt failure and hyperinflation compatible with COPD. CT head revealing age-related atrophic and chronic small vessel ischemic changes without acute intercranial process. Lab findings revealed patient to have an elevated lactate of 2.6, elevated troponin of 0.118, proBNP of 5560, elevated renal function with BUN 35, creatinine 1.33, and GFR 49, and normocytic normochromic anemia with hemoglobin of 11.9, hematocrit 37.5, MCV 86.2, MCH 27.3, MCHC 31.7, and RDW of 15.9. Patient admitted under our services for acute exacerbation of chronic diastolic heart failure and elevated troponin. Patient limited verbally and only able to answer yes and no questions. He denied having any pain or discomfort, denied headache or lightheadedness, chest pain or palpitations, feeling short of breath, any abdominal pain, nausea, or vomiting, denied having any urinary frequency, urgency, or dysuria, denied having any new or uncontrolled pain/tingling/weakness/numbness of extremities. Admitted with CHF exacerbation. Today-patient ate about 25% of his meals with assistance. I did speak to the nurse to do some oral care. Laying in bed. Tired. Answering simple questions. Review of systems unable. Pain because of patient being a limited historian Active Medications Acetaminophen (Acetaminophen Tab 325 Mg Tab) 650 mg PO Q6HR PRN PRN Reason: Mild Pain or Fever > 100.5 Hydrocodone Bitart/Acetaminophen (Hydrocodone/Apap 5-325mg 1 Each Tab) 1 each PO Q4HR PRN PRN Reason: Moderate Pain Last Admin: 09/06/20 20:44 Dose: 1 each Documented by: Albuterol/Ipratropium (Ipratropium-Albuterol 3 Ml Neb) 3 ml INHALATION RT-Q8H PRN PRN Reason: Shortness Of Breath Or Wheezing Alprazolam (Alprazolam 0.25 Mg Tab) 0.25 mg PO Q6HR PRN PRN Reason: Anxiety Aspirin (Aspirin 81 Mg) 81 mg PO DAILY [facility] Atorvastatin Calcium (Atorvastatin 10 Mg Tab) 10 mg PO HS [facility] Last Admin: 09/06/20 20:30 Dose: 10 mg Documented by: Baclofen (Baclofen 10 Mg Tab) 10 mg PO BID [facility] Last Admin: 09/06/20 20:30 Dose: 10 mg Documented by: Cholecalciferol (Cholecalciferol 25 Mcg (1000 Iu) Tablet) 25 mcg PO DAILY [facility] Last Admin: 09/06/20 09:24 Dose: Not Given Documented by: Famotidine (Famotidine 20 Mg Tab) 20 mg PO DAILY [facility] Last Admin: 09/06/20 09:24 Dose: Not Given Documented by: Furosemide (Furosemide 80 Mg Tab) 80 mg PO BID@0900,1600 [facility] Last Admin: 09/06/20 17:29 Dose: 80 mg Documented by: Heparin Sodium (Porcine) (Heparin Sodium,Porcine 5,000 Unit/Ml 1 Ml Vial) 5,000 unit SQ Q12HR [facility] Last Admin: 09/06/20 20:30 Dose: 5,000 unit Documented by: Levothyroxine Sodium (Levothyroxine 88 Mcg Tab) 88 mcg PO DAILY@0600 [facility] Last Admin: 09/06/20 06:04 Dose: 88 mcg Documented by: Melatonin (Melatonin 3 Mg Tablet) 3 mg PO HS PRN PRN Reason: Insomnia Methyl Salicylate (Methyl Salicylate/Menthol Cream 5 Oz) 1 applic TOPICAL Q12H PRN PRN Reason: NECK/SHOULDER PAIN Metoprolol Succinate (Metoprolol Succinate (Er) 25 Mg Tab.Er.24h) 25 mg PO DAILY [facility] Last Admin: 09/06/20 09:30 Dose: Not Given Documented by: Multivitamins (Multivitamins, Thera 1 Each Tab) 1 each PO DAILY [facility] Last Admin: 09/06/20 09:24 Dose: Not Given Documented by: Naloxone HCl (Naloxone 0.4 Mg/Ml 1 Ml Vial) 0.2 mg IV Q2M PRN PRN Reason: Opioid Reversal Phenol/Menthol (Phenol 1.4% Sore Throat Herman Bottle) 1 applic MUCOUS MEM Q2H PRN PRN Reason: MOUTH/THROAT/DENTAL AGENTS Tamsulosin HCl (Tamsulosin 0.4 Mg Cap.Er.24h) 0.4 mg PO DAILY MARIANA Last Admin: 09/06/20 09:31 Dose: Not Given Documented by: Tramadol HCl (Tramadol 50 Mg Tab) 50 mg PO TID PRN PRN Reason: Pain On examination: VITAL SIGNS: [98.1, 56, 16, 99/54, 98% on 4 L] GENERAL APPEARANCE: E-Mycin 8.4, thin built, wasting of muscle laying in bed not in distress. HEENT: Normal external appearance of nose and ear. Oral cavity dry mucous membranes EYES: Pupils equal. Conjunctiva normal. NECK: JVD not raised. Mass not palpable. RESPIRATORY: Respiratory effort normal. Lungs few crackles CARDIOVASCULAR: First and second sounds normal. No edema. ABDOMEN: Soft. Liver and spleen not palpable. No tenderness. No mass palpable. PSYCHIATRY: Answering occasional question NEUROLOGICAL: Does move his limbs Investigations: . White count 4.3 hemoglobin 13.5 platelets 209 potassium 6 creatinine 1.18 EKG tracing personally reviewed by me-atrial flutter fibrillation with PVCs Chest x-ray film-pulmonary edema 2-D echocardiogram-suboptimal Plan of care: Acute and chronic exacerbation of chronic diastolic heart failure, EF not known Started on IV Lasix. Swished over to by mouth Lasix.. Elevated troponin likely secondary to CHF exacerbation Follow trend Elevated Lactate likely resulting from hypoperfusion secondary to cardiac etiology, type II lactic acidosis -Treating underlying acute exacerbation of CHF, Abdominal urinalysis, suspect asymptomatic bacteriuria Follow clinically. No antibiotics Persistent Atrial flutter-fibrillation with frequent PVCs Started with Toprol-XL, telemetry Essential Hypertension -metoprolol succinate. Hyperlipidemia Lipitor History of CVA with deficits consisting of significant muscle spasticity -Continue daily medication regimen baclofen, tramadol, and biofreeze. -Patient to be provided with assistance as needed. Hypothyroidism Continue Synthroid GERD Continue Pepcid. BPH: On Flomax Given patient's age and comorbidities and poor functional status. Patient rather frail. Prognosis guarded. Aspiration precautions. Discussed with nurse.
[2020-09-07] MEDS: LEVOTHYROXINE 88 MCG TAB PO SCH (05:48)
[2020-09-07 06:49] LABS: African American GFR (CKD) 65 (>60 ml/min/1.73 sqM); Anion Gap 8 mmol/L; Blood Urea Nitrogen 42 mg/dL (9-20); Calcium 8.8 mg/dL (8.4-10.2); Carbon Dioxide 28 mmol/L (22-30); Chloride 108 mmol/L (98-107); Glucose 115 mg/dL (74-99); Non-African American GFR(CKD) 56 (>60 ml/min/1.73 sqM); Potassium 3.7 mmol/L (3.5-5.1); Sodium 144 mmol/L (137-145)
[2020-09-07] MEDS: IPRATROPIUM-ALBUTEROL 3 ML NEB INHALATION PRN ×2 (08:01→14:58)
[2020-09-07] MEDS: METOPROLOL SUCCINATE (ER) 25 MG TAB.ER.24H PO SCH (08:07)
[2020-09-07] MEDS: BACLOFEN 10 MG TAB PO SCH ×2 (08:42→20:08)
[2020-09-07] MEDS: FUROSEMIDE 80 MG TAB PO SCH ×2 (08:42→16:09)
[2020-09-07] MEDS: ASPIRIN 81 MG PO SCH (08:43)
[2020-09-07] MEDS: HEPARIN SODIUM,PORCINE 5,000 UNIT/ML 1 ML VIAL SQ SCH ×2 (08:43→20:08)
[2020-09-07] MEDS: FAMOTIDINE 20 MG TAB PO SCH (09:00)
[2020-09-07] MEDS: TAMSULOSIN 0.4 MG CAP.ER.24H PO SCH (09:00)
[2020-09-07] MEDS: CHOLECALCIFEROL 25 MCG (1000 IU) TABLET PO SCH (09:02)
[2020-09-07] MEDS: MULTIVITAMINS, THERA 1 EACH TAB PO SCH (09:03)
--- NOTE | 2020-09-07 11:42 | P.PN ---
Subjective Progress Note Date: 09/07/20 Principal diagnosis: Heart failure with preserved ejection fraction This is an 85-year-old gentleman who was admitted to the hospital with acute exacerbation of heart failure with preserved ejection fraction. The patient also is known to have permanent atrial fibrillation not on oral anticoagulation. The patient was seen today. He does have some change in mental status and he is somewhat poor historian. He is hemodynamically stable. No indication that the patient was experiencing any symptoms of chest pain or chest discomfort. Currently he is on Lasix by mouth. Objective - Vital Signs Vital signs: Vital Signs Temp 98.0 F 09/07/20 05:24 Pulse 88 09/07/20 08:13 Resp 15 09/07/20 08:00 BP 111/95 09/07/20 05:24 Pulse Ox 99 09/07/20 05:24 Intake & Output 09/06/20 09/07/20 09/07/20 18:59 06:59 18:59 Weight 56.5 kg 54.5 kg Other: Voiding Method Diaper Diaper Diaper # Voids 1 # Bowel Movements 1 - Constitutional General appearance: Present: no acute distress - Respiratory Respiratory: bilateral: diminished - Cardiovascular Rhythm: irregularly irregular Heart sounds: normal: S1, S2 - Labs CBC & Chem 7: 09/06/20 05:29 09/07/20 05:51 Labs: Abnormal Lab Results - Last 24 Hours (Table) 09/07/20 Range/Units 05:51 Chloride 108 H (98-107) mmol/L BUN 42 H (9-20) mg/dL Glucose 115 H (74-99) mg/dL Microbiology - Last 24 Hours (Table) 09/05/20 11:35 Urine Culture - Preliminary Urine,Voided Gram Neg Bacilli Assessment and Plan Assessment: Assessment #1 heart failure exacerbation secondary to heart failure with preserved ejection fraction #2 lactic acidosis #3 permanent atrial fibrillation #4 multiple comorbid conditions Plan #1 continue the current medical regimen #2 the patient is on oral diuretics we'll continue that #3 an echocardiogram was performed and was technically very difficult #4 we will follow-up with the patient on when necessary
--- NOTE | 2020-09-07 19:28 | P.PN ---
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 Patient presented to the emergency department via EMS for reports of being found to be hypoxic and not quite like himself by skilled nursing staff. Upon arrival to hospital, pt had full work up completed with an EKG revealing atrial flutter with PVCs at a controlled ventricular rate of 71 bpm. Chest x-ray revealing pulmonary venous congestion without overt failure and hyperinflation compatible with COPD. CT head revealing age-related atrophic and chronic small vessel ischemic changes without acute intercranial process. Lab findings revealed patient to have an elevated lactate of 2.6, elevated troponin of 0.118, proBNP of 5560, elevated renal function with BUN 35, creatinine 1.33, and GFR 49, and normocytic normochromic anemia with hemoglobin of 11.9, hematocrit 37.5, MCV 86.2, MCH 27.3, MCHC 31.7, and RDW of 15.9. Patient admitted under our services for acute exacerbation of chronic diastolic heart failure and elevated troponin. Patient limited verbally and only able to answer yes and no questions. He denied having any pain or discomfort, denied headache or lightheadedness, chest pain or palpitations, feeling short of breath, any abdominal pain, nausea, or vomiting, denied having any urinary frequency, urgency, or dysuria, denied having any new or uncontrolled pain/tingling/weakness/numbness of extremities. Admitted with CHF exacerbation. Today-patient is barely eating. Laying in bed. Tired. Does open eyes. Does follow commands. dozes off Review of systems unable. Pain because of patient being a limited historian Active Medications Acetaminophen (Acetaminophen Tab 325 Mg Tab) 650 mg PO Q6HR PRN PRN Reason: Mild Pain or Fever > 100.5 Hydrocodone Bitart/Acetaminophen (Hydrocodone/Apap 5-325mg 1 Each Tab) 1 each PO Q4HR PRN PRN Reason: Moderate Pain Last Admin: 09/06/20 20:44 Dose: 1 each Documented by: Albuterol/Ipratropium (Ipratropium-Albuterol 3 Ml Neb) 3 ml INHALATION RT-Q8H PRN PRN Reason: Shortness Of Breath Or Wheezing Last Admin: 09/07/20 14:58 Dose: 3 ml Documented by: Alprazolam (Alprazolam 0.25 Mg Tab) 0.25 mg PO Q6HR PRN PRN Reason: Anxiety Aspirin (Aspirin 81 Mg) 81 mg PO DAILY [facility] Last Admin: 09/07/20 08:43 Dose: 81 mg Documented by: Atorvastatin Calcium (Atorvastatin 10 Mg Tab) 10 mg PO HS [facility] Last Admin: 09/06/20 20:30 Dose: 10 mg Documented by: Baclofen (Baclofen 10 Mg Tab) 10 mg PO BID [facility] Last Admin: 09/07/20 08:42 Dose: 10 mg Documented by: Cholecalciferol (Cholecalciferol 25 Mcg (1000 Iu) Tablet) 25 mcg PO DAILY [facility] Last Admin: 09/07/20 09:02 Dose: Not Given Documented by: Famotidine (Famotidine 20 Mg Tab) 20 mg PO DAILY [facility] Last Admin: 09/07/20 09:00 Dose: 20 mg Documented by: Furosemide (Furosemide 80 Mg Tab) 80 mg PO BID@0900,1600 [facility] Last Admin: 09/07/20 16:09 Dose: 80 mg Documented by: Heparin Sodium (Porcine) (Heparin Sodium,Porcine 5,000 Unit/Ml 1 Ml Vial) 5,000 unit SQ Q12HR [facility] Last Admin: 09/07/20 08:43 Dose: 5,000 unit Documented by: Levothyroxine Sodium (Levothyroxine 88 Mcg Tab) 88 mcg PO DAILY@0600 [facility] Last Admin: 09/07/20 05:48 Dose: Not Given Documented by: Melatonin (Melatonin 3 Mg Tablet) 3 mg PO HS PRN PRN Reason: Insomnia Methyl Salicylate (Methyl Salicylate/Menthol Cream 5 Oz) 1 applic TOPICAL Q12H PRN PRN Reason: NECK/SHOULDER PAIN Metoprolol Succinate (Metoprolol Succinate (Er) 25 Mg Tab.Er.24h) 25 mg PO DAILY [facility] Last Admin: 09/07/20 08:07 Dose: Not Given Documented by: Multivitamins (Multivitamins, Thera 1 Each Tab) 1 each PO DAILY [facility] Last Admin: 09/07/20 09:03 Dose: Not Given Documented by: Naloxone HCl (Naloxone 0.4 Mg/Ml 1 Ml Vial) 0.2 mg IV Q2M PRN PRN Reason: Opioid Reversal Phenol/Menthol (Phenol 1.4% Sore Throat [place] Bottle) 1 applic MUCOUS MEM Q2H PRN PRN Reason: MOUTH/THROAT/DENTAL AGENTS Tamsulosin HCl (Tamsulosin 0.4 Mg Cap.Er.24h) 0.4 mg PO DAILY [facility] Last Admin: 09/07/20 09:00 Dose: 0.4 mg Documented by: Tramadol HCl (Tramadol 50 Mg Tab) 50 mg PO TID PRN PRN Reason: Pain On examination: VITAL SIGNS: 97.5, 87, 20, 105/79, 92% on 4 L GENERAL APPEARANCE: Laying in bed, thin built, wasting of muscle laying in bed not in distress. HEENT: Normal external appearance of nose and ear. Oral cavity dry mucous membranes EYES: Pupils equal. Conjunctiva normal. NECK: JVD not raised. Mass not palpable. RESPIRATORY: Respiratory effort normal. Lungs few crackles CARDIOVASCULAR: First and second sounds normal. No edema. ABDOMEN: Soft. Liver and spleen not palpable. No tenderness. No mass palpable. PSYCHIATRY: Answering occasional question NEUROLOGICAL: Moves his limbs, follows commands Investigations: September 07: Potassium 3.7 creatinine 1.18 . White count 4.3 hemoglobin 13.5 platelets 209 potassium 6 creatinine 1.18 EKG tracing personally reviewed by me-atrial flutter fibrillation with PVCs Chest x-ray film-pulmonary edema 2-D echocardiogram-suboptimal Plan of care: Acute and chronic exacerbation of chronic diastolic heart failure, EF not known Started on IV Lasix. Swished over to by mouth Lasix.. Elevated troponin likely secondary to CHF exacerbation Follow trend. Not for any further workup Elevated Lactate likely resulting from hypoperfusion secondary to cardiac etiology, type II lactic acidosis -Treating underlying acute exacerbation of CHF, Abdominal urinalysis, suspect asymptomatic bacteriuria Follow clinically. No antibiotics Persistent Atrial flutter-fibrillation with frequent PVCs Started with Toprol-XL, telemetry Essential Hypertension -metoprolol succinate. Hyperlipidemia Lipitor History of CVA with deficits consisting of significant muscle spasticity -Continue daily medication regimen baclofen, tramadol, and biofreeze. -Patient to be provided with assistance as needed. Hypothyroidism Continue Synthroid GERD Continue Pepcid. BPH: On Flomax Major cognitive impairment, likely from underlying Alzheimer's dementia -Follow clinically Acute and chronic advancing medical debility -Fall precautions Advanced care planning: Spoke to patient's son over the phone who was also DPO. He understands patient's health is failing. Not for any artificial measures. Patient is no code. Increase about scaling back on treatment. Patient is comfortable. We'll have the patient return to ECF on Wednesday with under hospice care. I spent about 20 minutes
[2020-09-08] MEDS: LEVOTHYROXINE 88 MCG TAB PO SCH (05:22)
[2020-09-08] MEDS: HEPARIN SODIUM,PORCINE 5,000 UNIT/ML 1 ML VIAL SQ SCH ×2 (07:23→20:41)
[2020-09-08] MEDS: METOPROLOL SUCCINATE (ER) 25 MG TAB.ER.24H PO SCH (07:23)
[2020-09-08] MEDS: TAMSULOSIN 0.4 MG CAP.ER.24H PO SCH (07:23)
[2020-09-08] MEDS: ASPIRIN 81 MG PO SCH (07:23)
[2020-09-08] MEDS: FUROSEMIDE 80 MG TAB PO SCH ×2 (07:23→15:45)
[2020-09-08] MEDS: BACLOFEN 10 MG TAB PO SCH ×2 (07:23→20:41)
[2020-09-08] MEDS: FAMOTIDINE 20 MG TAB PO SCH (07:23)
--- NOTE | 2020-09-08 18:34 | P.PN ---
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 Patient presented to the emergency department via EMS for reports of being found to be hypoxic and not quite like himself by halfway staff. Upon arrival to hospital, pt had full work up completed with an EKG revealing atrial flutter with PVCs at a controlled ventricular rate of 71 bpm. Chest x-ray revealing pulmonary venous congestion without overt failure and hyperinflation compatible with COPD. CT head revealing age-related atrophic and chronic small vessel ischemic changes without acute intercranial process. Lab findings revealed patient to have an elevated lactate of 2.6, elevated troponin of 0.118, proBNP of 5560, elevated renal function with BUN 35, creatinine 1.33, and GFR 49, and normocytic normochromic anemia with hemoglobin of 11.9, hematocrit 37.5, MCV 86.2, MCH 27.3, MCHC 31.7, and RDW of 15.9. Patient admitted under our services for acute exacerbation of chronic diastolic heart failure and elevated troponin. Patient limited verbally and only able to answer yes and no questions. He denied having any pain or discomfort, denied headache or lightheadedness, chest pain or palpitations, feeling short of breath, any abdominal pain, nausea, or vomiting, denied having any urinary frequency, urgency, or dysuria, denied having any new or uncontrolled pain/tingling/weakness/numbness of extremities. Admitted with CHF exacerbation. Today-Poor oral intake. Laying in bed. Does answer simple questions Review of systems unable. To obtain because of patient being a limited historian Active Medications Acetaminophen (Acetaminophen Tab 325 Mg Tab) 650 mg PO Q6HR PRN PRN Reason: Mild Pain or Fever > 100.5 Hydrocodone Bitart/Acetaminophen (Hydrocodone/Apap 5-325mg 1 Each Tab) 1 each PO Q4HR PRN PRN Reason: Moderate Pain Last Admin: 09/06/20 20:44 Dose: 1 each Documented by: Albuterol/Ipratropium (Ipratropium-Albuterol 3 Ml Neb) 3 ml INHALATION RT-Q8H PRN PRN Reason: Shortness Of Breath Or Wheezing Last Admin: 09/07/20 14:58 Dose: 3 ml Documented by: Alprazolam (Alprazolam 0.25 Mg Tab) 0.25 mg PO Q6HR PRN PRN Reason: Anxiety Aspirin (Aspirin 81 Mg) 81 mg PO DAILY [facility] Last Admin: 09/08/20 07:23 Dose: 81 mg Documented by: Baclofen (Baclofen 10 Mg Tab) 10 mg PO BID [facility] Last Admin: 09/08/20 07:23 Dose: 10 mg Documented by: Famotidine (Famotidine 20 Mg Tab) 20 mg PO DAILY [facility] Last Admin: 09/08/20 07:23 Dose: 20 mg Documented by: Furosemide (Furosemide 80 Mg Tab) 80 mg PO BID@0900,1600 [facility] Last Admin: 09/08/20 15:45 Dose: 80 mg Documented by: Heparin Sodium (Porcine) (Heparin Sodium,Porcine 5,000 Unit/Ml 1 Ml Vial) 5,000 unit SQ Q12HR [facility] Last Admin: 09/08/20 07:23 Dose: 5,000 unit Documented by: Levothyroxine Sodium (Levothyroxine 88 Mcg Tab) 88 mcg PO DAILY@0600 [facility] Last Admin: 09/08/20 05:22 Dose: 88 mcg Documented by: Melatonin (Melatonin 3 Mg Tablet) 3 mg PO HS PRN PRN Reason: Insomnia Methyl Salicylate (Methyl Salicylate/Menthol Cream 5 Oz) 1 applic TOPICAL Q12H PRN PRN Reason: NECK/SHOULDER PAIN Metoprolol Succinate (Metoprolol Succinate (Er) 25 Mg Tab.Er.24h) 25 mg PO DAILY [facility] Last Admin: 09/08/20 07:23 Dose: 25 mg Documented by: Naloxone HCl (Naloxone 0.4 Mg/Ml 1 Ml Vial) 0.2 mg IV Q2M PRN PRN Reason: Opioid Reversal Phenol/Menthol (Phenol 1.4% Sore Throat [place] Bottle) 1 applic MUCOUS MEM Q2H PRN PRN Reason: MOUTH/THROAT/DENTAL AGENTS Tamsulosin HCl (Tamsulosin 0.4 Mg Cap.Er.24h) 0.4 mg PO DAILY [facility] Last Admin: 09/08/20 07:23 Dose: 0.4 mg Documented by: Tramadol HCl (Tramadol 50 Mg Tab) 50 mg PO TID PRN PRN Reason: Pain On examination: VITAL SIGNS: 97.4, 66, 18, 98/73, 98% on 4 L GENERAL APPEARANCE: Laying in bed, thin built, wasting of muscle laying in bed not in distress. HEENT: Normal external appearance of nose and ear. Oral cavity dry mucous membranes EYES: Pupils equal. Conjunctiva normal. NECK: JVD not raised. Mass not palpable. RESPIRATORY: Respiratory effort normal. Lungs few crackles CARDIOVASCULAR: First and second sounds normal. No edema. ABDOMEN: Soft. Liver and spleen not palpable. No tenderness. No mass palpable. PSYCHIATRY: Answering occasional question NEUROLOGICAL: Moves his limbs, follows commands Investigations: September 07: Potassium 3.7 creatinine 1.18 . White count 4.3 hemoglobin 13.5 platelets 209 potassium 6 creatinine 1.18 EKG tracing personally reviewed by me-atrial flutter fibrillation with PVCs Chest x-ray film-pulmonary edema 2-D echocardiogram-suboptimal Plan of care: Acute and chronic exacerbation of chronic diastolic heart failure, EF not known Started on IV Lasix. Swished over to by mouth Lasix.. Elevated troponin likely secondary to CHF exacerbation Follow trend. Not for any further workup Elevated Lactate likely resulting from hypoperfusion secondary to cardiac etiology, type II lactic acidosis -Treating underlying acute exacerbation of CHF, Abdominal urinalysis, suspect asymptomatic bacteriuria Follow clinically. No antibiotics Persistent Atrial flutter-fibrillation with frequent PVCs Started with Toprol-XL, telemetry Essential Hypertension -metoprolol succinate. Hyperlipidemia Lipitor History of CVA with deficits consisting of significant muscle spasticity -Continue daily medication regimen baclofen, tramadol, and biofreeze. -Patient to be provided with assistance as needed. Hypothyroidism Continue Synthroid GERD Continue Pepcid. BPH: On Flomax Major cognitive impairment, likely from underlying Alzheimer's dementia -Follow clinically Acute and chronic advancing medical debility -Fall precautions Disposition: Return to ECF with hospice tomorrow
[2020-09-09 00:04] VITALS: PULSE 64; TEMP 98.4
[2020-09-09 03:30] VITALS: BP 95/59
[2020-09-09] MEDS: LEVOTHYROXINE 88 MCG TAB PO SCH (05:33)
[2020-09-09] MEDS: FUROSEMIDE 80 MG TAB PO SCH (08:15)
[2020-09-09] MEDS: ASPIRIN 81 MG PO SCH (08:15)
[2020-09-09] MEDS: FAMOTIDINE 20 MG TAB PO SCH (08:15)
[2020-09-09] MEDS: BACLOFEN 10 MG TAB PO SCH (08:16)
[2020-09-09] MEDS: TAMSULOSIN 0.4 MG CAP.ER.24H PO SCH (08:16)
[2020-09-09] MEDS: METOPROLOL SUCCINATE (ER) 25 MG TAB.ER.24H PO SCH (08:16)
[2020-09-09] MEDS: HEPARIN SODIUM,PORCINE 5,000 UNIT/ML 1 ML VIAL SQ SCH (08:16)
[2020-09-09 09:15] VITALS: RESP 18
--- NOTE | 2020-09-09 14:08 | P.DS ---
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 Patient presented to the emergency department via EMS for reports of being found to be hypoxic and not quite like himself by senior living staff. Upon arrival to hospital, pt had full work up completed with an EKG revealing atrial flutter with PVCs at a controlled ventricular rate of 71 bpm. Chest x-ray revealing pulmonary venous congestion without overt failure and hyperinflation compatible with COPD. CT head revealing age-related atrophic and chronic small vessel ischemic changes without acute intercranial process. Lab findings revealed patient to have an elevated lactate of 2.6, elevated troponin of 0.118, proBNP of 5560, elevated renal function with BUN 35, creatinine 1.33, and GFR 49, and normocytic normochromic anemia with hemoglobin of 11.9, hematocrit 37.5, MCV 86.2, MCH 27.3, MCHC 31.7, and RDW of 15.9. Patient admitted under our services for acute exacerbation of chronic diastolic heart failure and elevated troponin. Patient limited verbally and only able to answer yes and no questions. He denied having any pain or discomfort, denied headache or lightheadedness, chest pain or palpitations, feeling short of breath, any abdominal pain, nausea, or vomiting, denied having any urinary frequency, urgency, or dysuria, denied having any new or uncontrolled pain/tingling/weakness/numbness of extremities. Admitted with CHF exacerbation. Patient was given IV Lasix. But patient remained to do poorly. Barely eating. Choking often. Sometimes missing medications Today-laying in bed. Does open eyes. May answer 1 or 2 words. Patient's son at the bedside. He is agreed to patient being under hospice at the [facility]. All medications have been discontinued. Patient not in any discomfort or pain. On the comfort feeding. Spoke to the social services director. On comfort feeding. Discussion and discharge planning more than 35 minutes Consultation: Cardiology associates On examination: VITAL SIGNS: 98.4, 64, 20, 95/59, 99% on room air GENERAL APPEARANCE: Laying in bed, thin built, wasting of muscle laying in bed not in distress. HEENT: Normal external appearance of nose and ear. Oral cavity dry mucous membranes EYES: Pupils equal. Conjunctiva normal. NECK: JVD not raised. Mass not palpable. RESPIRATORY: Respiratory effort normal. Lungs few crackles CARDIOVASCULAR: First and second sounds normal. No edema. ABDOMEN: Soft. Liver and spleen not palpable. No tenderness. No mass palpable. PSYCHIATRY: Answering occasional question NEUROLOGICAL: Moves his limbs, follows commands Investigations: September 07: Potassium 3.7 creatinine 1.18 . White count 4.3 hemoglobin 13.5 platelets 209 potassium 6 creatinine 1.18 EKG tracing personally reviewed by me-atrial flutter fibrillation with PVCs Chest x-ray film-pulmonary edema 2-D echocardiogram-suboptimal Assessment and plan: Acute and chronic exacerbation of chronic diastolic heart failure, EF not known Started on IV Lasix. Swished over to by mouth Lasix.. Elevated troponin likely secondary to CHF exacerbation Follow trend. Not for any further workup Elevated Lactate likely resulting from hypoperfusion secondary to cardiac etiology, type II lactic acidosis -Treating underlying acute exacerbation of CHF, Abdominal urinalysis, suspect asymptomatic bacteriuria Follow clinically. No antibiotics Persistent Atrial flutter-fibrillation with frequent PVCs Started with Toprol-XL, telemetry Essential Hypertension -metoprolol succinate. Hyperlipidemia Lipitor History of CVA with deficits consisting of significant muscle spasticity -Continue daily medication regimen baclofen, tramadol, and biofreeze. -Patient to be provided with assistance as needed. Hypothyroidism Continue Synthroid GERD Continue Pepcid. BPH: On Flomax Major cognitive impairment, likely from underlying Alzheimer's dementia -Follow clinically Acute and chronic advancing medical debility -Fall precautions Comfort care with hospice Return to ECF under hospice Disposition: Return to ECF with hospice Plan - Discharge Summary New Discharge Prescriptions: Continue Ipratropium-Albuterol Nebulize [Duoneb 0.5 mg-3 mg/3 ml Soln] 3 ml INHALATION RT-Q8H PRN PRN Reason: Shortness Of Breath Or Wheezing Discontinued Simvastatin [Zocor] 20 mg PO HS Metoprolol Succinate [Toprol XL] 25 mg PO DAILY traMADol HCL [Ultram] 50 mg PO TID PRN PRN Reason: Pain Aspirin 325 mg PO DAILY Tamsulosin [Flomax] 0.4 mg PO DAILY Loratadine 10 mg PO DAILY PRN PRN Reason: Allergy Symptoms Magnesium Gluconate [Magonate] 500 mg PO DAILY Baclofen [Lioresal] 10 mg PO BID Cholecalciferol [Vitamin D3 (25 Mcg = 1000 Iu)] 25 mcg PO DAILY Docusate [Colace] 100 mg PO DAILY PRN PRN Reason: Constipation Famotidine [Pepcid] 20 mg PO DAILY Furosemide [Lasix] 60 mg PO BID@0900,1700 Levofloxacin [Levaquin] 500 mg PO DAILY Levothyroxine Sodium [Synthroid] 88 mcg PO DAILY@0600 Menthol [Biofreeze] 1 applic TOPICAL Q12H PRN PRN Reason: NECK/SHOULDER PAIN Multivitamin with Iron [Multivitamins with Iron] 1 tab PO DAILY Phenol 1.4% [place] [Sore Throat [place] (Chloraseptic)] 1 spray MUCOUS MEM Q2H PRN PRN Reason: MOUTH/THROAT/DENTAL AGENTS Potassium Chloride [Klor-Con 20] 20 meq PO DAILY S.boulardii/B.coagulans/Fos [Diff-Stat 471 mg Capsule] 942 mg PO BID Discharge Medication List Ipratropium-Albuterol Nebulize [Duoneb 0.5 mg-3 mg/3 ml Soln] 3 ml INHALATION RT-Q8H PRN 09/05/20 [History] Follow up Appointment(s)/Referral(s): [facility] [NON-STAFF] - As Needed [facility], [NON-STAFF] - As Needed Jarek Rodriguez MD [Primary Care Provider] - 1-2 days
== END 2020-09-09 15:40 | disposition home or self-care (01) | DRG 291 ==
LOC: EC 10:49 → 4SSUR 14:44
PROVIDERS: ADMIT Hospitalist; ATTEND Hospitalist
DX: I13.0 Hypertensive heart and chronic kidney disease with heart failure and stage 1 through stage 4 chronic kidney disease, or unspecified chronic kidney disease (principal); I50.33 Acute on chronic diastolic (congestive) heart failure; E43 Unspecified severe protein-calorie malnutrition; I45.2 Bifascicular block; I48.21 Permanent atrial fibrillation; I48.92 Unspecified atrial flutter; N17.9 Acute kidney failure, unspecified; Z68.1 Body mass index [BMI] 19.9 or less, adult; E87.2 Acidosis; I69.354 Hemiplegia and hemiparesis following cerebral infarction affecting left non-dominant side; I25.10 Atherosclerotic heart disease of native coronary artery without angina pectoris; K21.9 Gastro-esophageal reflux disease without esophagitis; L89.151 Pressure ulcer of sacral region, stage 1; N18.30 Chronic kidney disease, stage 3 unspecified; N40.0 Benign prostatic hyperplasia without lower urinary tract symptoms; R29.6 Repeated falls; R09.02 Hypoxemia; Z66 Do not resuscitate; Z51.5 Encounter for palliative care; Z20.822 Contact with and (suspected) exposure to COVID-19; D64.9 Anemia, unspecified; E03.9 Hypothyroidism, unspecified; E78.5 Hyperlipidemia, unspecified; F02.80 Dementia in other diseases classified elsewhere, unspecified severity, without behavioral disturbance, psychotic disturbance, mood disturbance, and anxiety; F41.9 Anxiety disorder, unspecified; G30.9 Alzheimer's disease, unspecified; J44.9 Chronic obstructive pulmonary disease, unspecified; G47.00 Insomnia, unspecified; M24.542 Contracture, left hand; I69.398 Other sequelae of cerebral infarction; M62.838 Other muscle spasm; Z79.82 Long term (current) use of aspirin; Z79.890 Hormone replacement therapy; Z79.899 Other long term (current) drug therapy; Z87.891 Personal history of nicotine dependence; R79.89 Other specified abnormal findings of blood chemistry; I08.0 Rheumatic disorders of both mitral and aortic valves; I49.3 Ventricular premature depolarization; L40.9 Psoriasis, unspecified; M19.90 Unspecified osteoarthritis, unspecified site; Z74.01 Bed confinement status
CPT/HCPCS: 36415; 70450; 71046; 80048; 80053; 80061; 81001; 83605; 83735; 83880; 84484; 85025; 85610; 85730; 87077; 87086; 87186; 87635; 93005; 93308; 94640; 94760; 99285